=== PATIENT | male | born 1930 | race Caucasian/White ===

== ENCOUNTER 2017-12-16 09:31 | Inpatient (IN) | payer MEDICARE, OTHER ==
[2017-12-16] MEDS: Lactated Ringers 1,000 ML IV SCH ×3 (10:21→21:51)
[2017-12-16 10:46] LABS: CHLORIDE,CL 113 mmol/L (98-107); SODIUM,NA 140 mmol/L (136-145)
[2017-12-16] MEDS ORDERED: cefTRIAXone 2 GM Vial IVPUSH ONE (11:48)
--- NOTE | 2017-12-16 19:17 | HP ---
HISTORY OF PRESENT ILLNESS: 87-year-old admitted with weakness. The patient states he was in his normal state of health. Yesterday, his actually came home from the hospital. Then, this morning, he just was extremely weak in the legs. Maybe a little bit of chills. No fever. Some low back pain, but feels that is more chronic. No abdominal pain. No high output from his ostomy. Some chronic leg swelling, but no foot sores or redness. No cough. No chest pain. No shortness of breath, but presented to the ER with the above symptoms of leg weakness, just not even hardly able to stand. Temperature is mildly elevated at 99.9, but white count was normal. He was found to have a UTI with 20-30 wbc's. He normally does have urinary residual at home. He used to straight cath. He had some problems with infections in the past from that. He does have previous urine culture on file. He grew Enterococcus back in 2016, but grew Enterobacter in his blood at that time, which was felt to be due to a buttock ulcer. He has currently had the ulcer in his low back again, but on exam, there was no sign of infection. The Enterococcus was actually showing small like only 10,000, but it was sensitive to ampicillin. The patient is allergic to penicillin, so did get Rocephin in the ER, which he tolerated. ALLERGIES: The patient's allergy list includes Augmentin caused nausea and vomiting, so likely he may be able to tolerate penicillin. Tramadol caused him to be dizzy. MEDICATIONS: List was reviewed. Did show him to have Flomax 0.8 mg daily, Uloric 40 mg daily, iron supplements 324 b.i.d., Imdur 15 mg every other day, Neurontin 300 mg at bedtime, Lopressor 12.5 mg b.i.d., Aranesp as directed by [facility]. He actually had a shot on 11/05. He has Lasix 20 mg as needed for fluid retention, multivitamin daily, artificial Tears, aspirin 325 daily, Tylenol 650 every 4 hours as needed for pain, ostomy supplies. PAST MEDICAL HISTORY: Includes: 1. Ileostomy status for ulcerative colitis. 2. Atrial fibrillation, chronic. He is seen by Cardiology in the remote past. They recommended only aspirin for him. He has had even previous digoxin toxicity. 3. Neuropathy with prediabetes. 4. Detrusor instability with urinary retention. At one point, BPH and obstruction. 5. Chronic kidney disease stage 4. Baseline around 1.5 to 1.7. He has had several admissions for acute renal failure going up to 5.1, and had previously been around 1.8 to 2.2 after that. His creatinine on 12/04 was actually 1.7. Otherwise, he has chronic anemia due to chronic kidney disease, history of gout, previous skin cancers, previous non-ST elevation OH with ischemic cardiomyopathy, EF 40% in 2016, on medical management. He had some hypotension at that time, but he has been doing well since. 6. Iron deficiency anemia. 7. Previous toe infections. No sign of infection on today's admission. PREVIOUS SURGERIES: It should be noted that he had a cataract surgery, vein surgeries in his legs, growth behind his knee removed, right shoulder replacement, inguinal hernia repair, right side foot surgery, partial 3rd toe amputation, and other foot surgery was in 2016, a left tibial and fibular sesamoidectomy, previous colon surgery with colectomy for ulcerative colitis. He has also had minor amputations on the right hallux. The right hallux is the last one in his foot. SOCIAL HISTORY: He is . He lives at home with his . 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 He had 1 son of alcohol and intracranial hemorrhage. His just got out of the hospital. He has another child as well. FAMILY HISTORY: Includes both parents . Mother had cardiovascular disease. Brother is , had heart disease and alcohol abuse. REVIEW OF SYSTEMS: General: No weight changes reported, just weakness. No fever reported, but chills. HEENT: No sore throat. Cardiac: No chest pain. No palpitations. Respiratory: No cough. No shortness of breath. Abdominal: No new abdominal pain or change in ostomy output. Musculoskeletal: Again, the back pain, otherwise no new joints pain. Otherwise all systems reviewed and found to be negative unless otherwise stated. He denies confusion. PHYSICAL EXAMINATION: VITALS: T 99.9 HR 88, BP 124/65, RR 16, O2 96 on RA Physical Exam Constitutional: He is oriented to person, place, and time. He appears well- developedand well-nourished. No distress. HENT: Head: Normocephalicand atraumatic. Right Ear: External earnormal. Left Ear: External earnormal. Cardiovascular: An irregularly irregular rhythmpresent. Murmurheard. Neck: no swelling, no enlarged lymph nodes Pulmonary/Chest: Effort normaland breath sounds normal. No respiratory distress. He has no wheezes. Musculoskeletal: He exhibits edema. Trace edema noted to both ankles Neurological: He is alertand oriented to person, place, and time. Skin: He is not diaphoretic. No erythema. Did inspect the sacral area there was a small area at risk for skin breakdown but no ulcer present, no drainage, no surrounding redness or warmth. Psychiatric: He has a normal mood and affect. His behavior is normal. Judgment and thought contentnormal. Abdomen: Ostomy in place positive bowel sounds, abdomen nontender Impression: Leg weakness probably related to UTI UTI complicated with a history of BPH and urinary retention Atrial fibrillation paroxysmal rate controlled on ASA CKD stage 3 baseline Cr around 1.7-1.9 Chronic systolic heart failure EF of 40 % without exacerbation Prediabetes Chronic anemia BPH Ulcerative colitis Plan: Admit for IV fluids Bladder scan Continue IV rocephin Repeat labs in AM SCD's for DVT prophylaxis PT to assess for mobility Code level 3 MKA: 12/16/2017 18:03:34 MODL: 12/16/2017 19:09:01 /[id number] WILVER
[2017-12-16] MEDS: Metoprolol Tartrate 25 MG Tab PO SCH (19:46)
[2017-12-16] MEDS: Gabapentin 300 MG Cap PO SCH (19:46)
[2017-12-16] MEDS: Dextran 70/Hypromellose/PF Ophth Soln 0.9 ML UD EYEBOTH PRN (19:46)
[2017-12-16] MEDS: Acetaminophen 325 MG Tab PO PRN (21:50)
--- NOTE | 2017-12-16 23:43 | PCM.SN ---
- Free Text/Narrative Note: S: Called by nursing due to patient complaining of chest pain. Started at 7-8 pm and patient had a hard time initially localizing this. No associated shortness of breath, nausea, diaphoresis, or lightheadedness. Nursing gave tylenol and patient initially improved. Patient then with left sided pain again around 11, which is when I was contacted and came in to evaluate the patient. Pain on the left side/back now but had initially been in the chest. Chest pain now resolved but back pain rated 8/10. Has never had back pain like this before. Had a fall before coming in to the ER but states this was more like his legs went weak and he slid to the floor. He did not feel he injured anything. Pain was worse when he was laying flat in bed and is improved with his head up; raised the head of the bed further and pain has improved to 3/10. O: Vitals reviewed. Laying in bed in acute distress secondary to pain that did improve with repositioning. No tenderness to palpation in the chest wall. Does have left paraspinal low back tenderness to palpation. Heart with irregular rhythm and normal rate; normal S1 and S2; no m/r/g. Lungs CTAB. Abdomen with normoactive bowel sounds. Soft, nontender, nondistended. Skin warm and dry. A/P: #1 Chest pain #2 Back pain - Has already resolved. - Consider ischemia vs. MSK vs. rib injury as primary differentials. Consider pyelonephritis in the setting of admission for UTI but location is not really flank. Symptoms not consistent with aortic pathology given significant improvement with repositioning and stability of vital signs. - Will start with repeating troponin, CBC, and BMP now. - If labs are unremarkable, will treat with tylenol, heating pad, and position of comfort. - Will intervene as indicated based on lab results. - Patient is comfortable with this plan. - Nursing to notify me if pain worsens again overnight. Aurora Loera MD
--- NOTE | 2017-12-17 00:34 | PCM.SN ---
- Free Text/Narrative Note: Labs reviewed. Hgb dropped slightly, likely due to fluids. Troponin up slightly but still within normal limits. Labs otherwise look ok. Called and patient is still doing well with correct positioning. Will add troponin to labs for the am. He has CBC and CMP ordered for am as well. No other changes tonight unless pain returns.
--- NOTE | 2017-12-17 01:50 | EDM.PDOC ---
ED HPI GENERAL MEDICAL PROBLEM - General Chief Complaint: General Stated Complaint: ER Time Seen by Provider: 12/16/17 09:31 Source of Information: Reports: Patient History Limitations: Reports: No Limitations - History of Present Illness INITIAL COMMENTS - FREE TEXT/NARRATIVE: Pt. presents to ER with complaints of weakness. Pt. states that he is not experiencing any fever or chills. He states that he did not strike his head. No nausea/vomiting/diarrhea. He states that he did not have any chest pain or shortness of breath. Pt. states that he was recently discharged from the hospital. He states he needs to be at home to care for her. He states that the weakness caused he lose strength in his legs and subsequently slumping backward at slow speed. He denies any high speed head trauma. Onset: Today - Related Data Allergies Allergy/AdvReac Type Severity Reaction Status Date / Time amoxicillin [From Augmentin] AdvReac Nausea and Verified 12/16/17 12:01 Vomiting clavulanic acid AdvReac Nausea and Verified 12/16/17 12:01 [From Augmentin] Vomiting tramadol AdvReac Dizziness Verified 12/16/17 10:09 Home Meds: Home Meds Acetaminophen [Mapap] 650 mg PO Q4HR PRN 12/07/13 [History] Febuxostat [Uloric] 40 mg PO DAILY 12/07/13 [History] Gabapentin [Neurontin] 300 mg PO BEDTIME 12/07/13 [History] Multivitamin with Minerals [Multiple Vitamin] 1 tab PO DAILY 12/07/13 [History] Tamsulosin [Flomax] 0.8 mg PO DAILY 12/07/13 [History] Aspirin [Ecotrin] 325 mg PO DAILY 01/19/16 [History] Dextran 70/Hypromellose [Artificial Tears] 1 drop EYEBOTH Q4H PRN 02/19/16 [ History] Darbepoetin Jewel in Polysorbat [Aranesp] 0 - 150 mcg SQ Q28D 11/13/16 [History] Ferrous Gluconate 324 mg PO BID 11/13/16 [History] Furosemide [Lasix] 20 mg PO DAILY PRN 11/13/16 [History] Isosorbide Mononitrate [Imdur] 15 mg PO Q2D 11/13/16 [History] Metoprolol Tartrate [Lopressor] 12.5 mg PO BID 11/13/16 [History] Past Medical History HEENT History: Reports: Other (See Below) Other HEENT History: keratoconjunctivitis sicca, vitreous float-both, dry eyes, presbyopia, myopia Cardiovascular History: Reports: Afib, Heart Murmur, Hypertension, CA, Other ( See Below) Other Cardiovascular History: mitral regurgitation, low HDL, bradycardia, Gastrointestinal History: Reports: Diverticulosis, Other (See Below) Other Gastrointestinal History: ulcerative colitis, ileostomy Genitourinary History: Reports: BPH, Renal Disease Musculoskeletal History: Reports: Gout, Other (See Below) Other Musculoskeletal History: osteomylitis, ulcer of foot Neurological History: Reports: Neuropathy, Peripheral Endocrine/Metabolic History: Reports: Other (See Below) Other Endocrine/Metabolic History: diabetes mellitus Hematologic History: Reports: Anemia, Other (See Below) Other Hematologic History: dig toxicity Oncologic (Cancer) History: Reports: Other (See Below) Other Oncologic History: malignant neoplasm of skin of trunk, skin cancer Dermatologic History: Reports: Other (See Below) Other Dermatologic History: actinic keratosis - Past Surgical History HEENT Surgical History: Reports: Cataract Surgery, Other (See Below) GI Surgical History: Reports: Colostomy, Hernia, Inguinal Male Surgical History: Reports: None Musculoskeletal Surgical History: Reports: Shoulder Surgery, Other (See Below) Social & Family History - Family History Family Medical History: Noncontributory - Tobacco Use Smoking Status *Q: Former Smoker Years of Tobacco use: 5 Used Tobacco, but Quit: Yes Month/Year Tobacco Last Used: 2002 Second Hand Smoke Exposure: No - Caffeine Use Caffeine Use: Reports: None - Recreational Drug Use Recreational Drug Use: No - Living Situation & Occupation Living situation: Reports: , with Spouse Occupation: Retired ED ROS GENERAL - Review of Systems Review Of Systems: See Below Constitutional: Reports: Fever, Chills, Malaise HEENT: Denies: Eye Discharge, Nosebleed, Nose Pain, Throat Swelling Respiratory: Denies: No Symptoms Cardiovascular: Reports: No Symptoms Endocrine: Reports: No Symptoms GI/Abdominal: Reports: No Symptoms : Reports: No Symptoms Musculoskeletal: Reports: No Symptoms Skin: Reports: No Symptoms Neurological: Reports: Tremors, Trouble Speaking, Difficulty Walking, Weakness Psychiatric: Reports: No Symptoms Hematologic/Lymphatic: Reports: No Symptoms Immunologic: Reports: No Symptoms ED EXAM, GENERAL - Physical Exam Exam: See Below Exam Limited By: No Limitations General Appearance: Alert, WD/WN, No Apparent Distress Eye Exam: Bilateral Eye: EOMI, Normal Fundi, Normal Inspection, PERRL Ears: Normal External Exam, Normal Canal, Hearing Grossly Normal, Normal TMs Ear Exam: Bilateral Ear: Auricle Normal, Canal Normal, TM normal Nose: Normal Inspection, Normal Mucosa, No Blood Throat/Mouth: Normal Inspection, Normal Lips, Normal Teeth, Normal Gums, Normal Oropharynx, Normal Voice, No Airway Compromise Head: Atraumatic, Normocephalic Neck: Normal Inspection, Supple, Non-Tender, Full Range of Motion Respiratory/Chest: No Respiratory Distress, Lungs Clear, Normal Breath Sounds, No Accessory Muscle Use, Chest Non-Tender Cardiovascular: Normal Peripheral Pulses, Regular Rate, Rhythm, No Edema, No Gallop, No JVD, No Murmur, No Rub GI/Abdominal: Normal Bowel Sounds, Soft, Non-Tender, No Organomegaly, No Distention, No Abnormal Bruit, No Mass (Male) Exam: Deferred Rectal (Males) Exam: Deferred Back Exam: Normal Inspection, Full Range of Motion, NT Extremities: Normal Inspection, Normal Range of Motion, Non-Tender, Normal Capillary Refill, No Pedal Edema Neurological: Alert, Oriented, CN II-XII Intact, Normal Cognition, Normal Gait, Confused Psychiatric: Normal Affect Course - Vital Signs Last Recorded V/S: Last Vital Signs Temp 36.6 C 12/16/17 21:37 Pulse 89 12/16/17 21:37 Resp 18 12/16/17 21:37 BP 151/77 H 12/16/17 21:37 Pulse Ox 99 12/16/17 21:37 - Orders/Labs/Meds Orders: Active Orders 24 hr Category Date Time Status Chest 1V Frontal [CR] Stat Exams 12/16/17 09:56 Taken CULTURE BLOOD [BC] Stat Lab 12/16/17 10:07 Received CULTURE BLOOD [BC] Stat Lab 12/16/17 10:14 Received UA W/MICROSCOPIC [URIN] Stat Lab 12/16/17 11:31 Ordered Lactated Ringers [Ringers, Lactated] 1,000 ml Med 12/16/17 10:00 Active IV ASDIRECTED Blood Culture x2 Reflex Set [OM.PC] Stat Oth 12/16/17 09:49 Ordered Medication Orders Acetaminophen (Tylenol) 650 mg PO Q4HR PRN PRN Reason: Pain Last Admin: 12/16/17 21:50 Dose: 650 mg Allopurinol (Zyloprim) 200 mg PO DAILY [facility] Artificial Tears (Tears Naturale Free) 0 each EYEBOTH Q4H PRN PRN Reason: Dry Eyes Last Admin: 12/16/17 19:46 Dose: 1 each Aspirin (Ecotrin) 325 mg PO DAILY [facility] Ceftriaxone Sodium (Rocephin) 1 gm IVPUSH DAILY [facility] Gabapentin (Neurontin) 300 mg PO BEDTIME [facility] Last Admin: 12/16/17 19:46 Dose: 300 mg Lactated Ringer's (Ringers, Lactated) 1,000 mls @ 100 mls/hr IV ASDIRECTED [facility] Last Admin: 12/16/17 21:51 Dose: 100 mls/hr Infusion: 12/16/17 21:51 Dose: 100 mls/hr Infusion: 12/16/17 16:04 Dose: 100 mls/hr Admin: 12/16/17 16:03 Dose: 250 mls/hr Infusion: 12/16/17 14:21 Dose: 250 mls/hr Admin: 12/16/17 10:21 Dose: 250 mls/hr Isosorbide Mononitrate (Imdur) 15 mg PO Q2D [facility] Metoprolol Tartrate (Lopressor) 12.5 mg PO BID [facility] Last Admin: 12/16/17 19:46 Dose: 12.5 mg Multivitamins/Minerals (Thera M Plus) 1 tab PO DAILY [facility] Non-Formulary Medication (Ferrous Gluconate [Ferrous Gluconate]) 324 mg PO BID [facility] Tamsulosin HCl (Flomax) 0.8 mg PO DAILY [facility] Labs: Laboratory Tests 12/16/17 12/16/17 12/16/17 Range/Units 10:07 10:07 10:07 WBC 8.6 (4.0-10.0) x10^3/uL RBC 3.14 L (4.5-6.0) x10^6/uL Hgb 10.5 L D (14.0-18.0) g/dL Hct 32.5 L (40.0-52.0) % MCV 103.5 H D (78.0-93.0) fL MCH 33.4 H (26.0-32.0) pg MCHC 32.3 (32.0-36.0) g/dL RDW Coeff of Gwen 13.1 (10.0-15.0) % Plt Count 108 L (130-400) x10^3/uL Add Manual Diff Yes Neutrophils % (Manual) 82 H (50-80) % Band Neutrophils % 6 (0-6) % Lymphocytes % (Manual) 6 L (25-50) % Monocytes % (Manual) 5 (2-11) % Eosinophils % (Manual) 1 (0-4) % Toxic Granulation 2+ moderate H Platelet Estimate Decreased L Giant Platelets Rare H Macrocytosis 2+ moderate H Ovalocytes 2+ moderate H Pennington Cells 1+ slight H Acanthocytes (Spur) 1+ slight H PT 10.2 (9.6-11.4) SEC INR 1.0 L (2.0-3.5) Sodium 140 (136-145) mmol/L Potassium 4.4 (3.5-5.1) mmol/L Chloride 113 H (98-107) mmol/L Carbon Dioxide 20 L (21-32) mmol/L Anion Gap 11.4 (10-20) mmol/L BUN 44 H (7-18) mg/dL Creatinine 1.9 H (0.70-1.30) mg/dL Est Cr Clr Drug Dosing TNP Estimated GFR (MDRD) 34 Glucose 95 (74-106) mg/dL Lactic Acid (0.4-2.0) mmol/L Calcium 8.9 (8.5-10.1) mg/dL Corrected Calcium 9.38 (8.5-10.1) mg/dL Phosphorus 4.1 (2.6-4.7) mg/dL Magnesium 1.7 L (1.8-2.4) mg/dL Total Bilirubin 0.5 (0.2-1.0) mg/dL AST 22 (15-37) U/L ALT 28 (16-63) U/L Alkaline Phosphatase 74 (46-116) U/L Troponin I (<=0.056) ng/mL C-Reactive Protein 1.0 H (<=0.9) mg/dL NT-Pro-B Natriuret Pep 4181 H (<=450) pg/mL Total Protein 6.4 (6.4-8.2) g/dL Albumin 3.4 (3.4-5.0) g/dL Globulin 3.0 Albumin/Globulin Ratio 1.13 Urine Color (YELLOW) Urine Appearance (CLEAR) Urine pH (5.0-8.0) Ur Specific Victor Urine Protein (NEGATIVE) mg/dL Urine Glucose (UA) (NEGATIVE) mg/dL Urine Ketones (NEGATIVE) mg/dL Urine Occult Blood (NEGATIVE) Urine Nitrite (NEGATIVE) Urine Bilirubin (NEGATIVE) Urine Urobilinogen (0.2) EU/dL Ur Leukocyte Esterase (NEGATIVE) Urine RBC (NOT SEEN) /HPF Urine WBC (NOT SEEN) /HPF Ur Squamous Epith Cells (NEGATIVE) /HPF Urine Bacteria (NEGATIVE) /HPF Urine Mucus (NEGATIVE) /LPF 12/16/17 12/16/17 12/16/17 Range/Units 10:07 10:07 11:31 WBC (4.0-10.0) x10^3/uL RBC (4.5-6.0) x10^6/uL Hgb (14.0-18.0) g/dL Hct (40.0-52.0) % MCV (78.0-93.0) fL MCH (26.0-32.0) pg MCHC (32.0-36.0) g/dL RDW Coeff of Gwen (10.0-15.0) % Plt Count (130-400) x10^3/uL Add Manual Diff Neutrophils % (Manual) (50-80) % Band Neutrophils % (0-6) % Lymphocytes % (Manual) (25-50) % Monocytes % (Manual) (2-11) % Eosinophils % (Manual) (0-4) % Toxic Granulation Platelet Estimate Giant Platelets Macrocytosis Ovalocytes Pennington Cells Acanthocytes (Spur) PT (9.6-11.4) SEC INR (2.0-3.5) Sodium (136-145) mmol/L Potassium (3.5-5.1) mmol/L Chloride (98-107) mmol/L Carbon Dioxide (21-32) mmol/L Anion Gap (10-20) mmol/L BUN (7-18) mg/dL Creatinine (0.70-1.30) mg/dL Est Cr Clr Drug Dosing Estimated GFR (MDRD) Glucose (74-106) mg/dL Lactic Acid 1.3 (0.4-2.0) mmol/L Calcium (8.5-10.1) mg/dL Corrected Calcium (8.5-10.1) mg/dL Phosphorus (2.6-4.7) mg/dL Magnesium (1.8-2.4) mg/dL Total Bilirubin (0.2-1.0) mg/dL AST (15-37) U/L ALT (16-63) U/L Alkaline Phosphatase (46-116) U/L Troponin I 0.028 (<=0.056) ng/mL C-Reactive Protein (<=0.9) mg/dL NT-Pro-B Natriuret Pep (<=450) pg/mL Total Protein (6.4-8.2) g/dL Albumin (3.4-5.0) g/dL Globulin Albumin/Globulin Ratio Urine Color Yellow (YELLOW) Urine Appearance Slightly cloudy H (CLEAR) Urine pH 5.0 (5.0-8.0) Ur Specific Victor 1.015 Urine Protein 30 H (NEGATIVE) mg/dL Urine Glucose (UA) Negative (NEGATIVE) mg/dL Urine Ketones Negative (NEGATIVE) mg/dL Urine Occult Blood Small H (NEGATIVE) Urine Nitrite Negative (NEGATIVE) Urine Bilirubin Negative (NEGATIVE) Urine Urobilinogen 0.2 (0.2) EU/dL Ur Leukocyte Esterase Moderate H (NEGATIVE) Urine RBC 10-20 H (NOT SEEN) /HPF Urine WBC 20-30 H (NOT SEEN) /HPF Ur Squamous Epith Cells Few H (NEGATIVE) /HPF Urine Bacteria Few H (NEGATIVE) /HPF Urine Mucus Rare H (NEGATIVE) /LPF Meds: Medications Generic Name Dose Route Start Last Admin Trade Name Freq PRN Reason Stop Dose Admin Acetaminophen 650 mg 12/16/17 14:59 12/16/17 21:50 Tylenol PO 650 mg Q4HR PRN Administration Pain Allopurinol 200 mg 12/17/17 08:00 Zyloprim PO DAILY [facility] Artificial Tears 0 each 12/16/17 15:30 12/16/17 19:46 Tears Naturale Free EYEBOTH 1 each Q4H PRN Administration Dry Eyes Aspirin 325 mg 12/17/17 08:00 Ecotrin PO DAILY [facility] Ceftriaxone Sodium 1 gm 12/17/17 08:00 Rocephin IVPUSH DAILY [facility] Gabapentin 300 mg 12/16/17 20:00 12/16/17 19:46 Neurontin PO 300 mg BEDTIME [facility] Administration Lactated Ringer's 1,000 mls @ 100 mls/hr 12/16/17 10:00 12/16/17 21:51 Ringers, Lactated IV 100 mls/hr ASDIRECTED [facility] Administration Isosorbide Mononitrate 15 mg 12/17/17 08:00 Imdur PO Q2D [facility] Metoprolol Tartrate 12.5 mg 12/16/17 20:00 12/16/17 19:46 Lopressor PO 12.5 mg BID [facility] Administration Multivitamins/Minerals 1 tab 12/17/17 08:00 Thera M Plus PO DAILY [facility] Non-Formulary Medication 324 mg 12/16/17 20:00 Ferrous Gluconate [Ferrous Gluconate] PO BID [facility] Tamsulosin HCl 0.8 mg 12/17/17 08:00 Flomax PO DAILY [facility] Discontinued Medications Generic Name Dose Route Start Last Admin Trade Name Freq PRN Reason Stop Dose Admin Ceftriaxone Sodium 2 gm 12/16/17 11:48 12/16/17 11:54 Rocephin IVPUSH 12/16/17 11:49 2 gm STAT ONE Administration Departure - Departure Time of Disposition: 12:30 Disposition: Admitted As Inpatient 64 Clinical Impression: UTI (urinary tract infection) - Discharge Information - My Orders Last 24 Hours: My Active Orders 12/16/17 09:49 Blood Culture x2 Reflex Set [OM.PC] Stat 12/16/17 09:56 Chest 1V Frontal [CR] Stat 12/16/17 10:00 Lactated Ringers [Ringers, Lactated] 1,000 ml IV ASDIRECTED 12/16/17 10:07 CULTURE BLOOD [BC] Stat 12/16/17 10:14 CULTURE BLOOD [BC] Stat 12/16/17 11:31 UA W/MICROSCOPIC [URIN] Stat - Assessment/Plan Last 24 Hours: My Active Orders 12/16/17 09:49 Blood Culture x2 Reflex Set [OM.PC] Stat 12/16/17 09:56 Chest 1V Frontal [CR] Stat 12/16/17 10:00 Lactated Ringers [Ringers, Lactated] 1,000 ml IV ASDIRECTED 12/16/17 10:07 CULTURE BLOOD [BC] Stat 12/16/17 10:14 CULTURE BLOOD [BC] Stat 12/16/17 11:31 UA W/MICROSCOPIC [URIN] Stat
[2017-12-17] MEDS ORDERED: Isosorbide Mononitrate 30 MG Tab.ER PO SCH (08:00)
[2017-12-17] MEDS: cefTRIAXone 1 GM Vial IVPUSH SCH (08:22)
[2017-12-17] MEDS ORDERED: Sodium Chloride 0.9% 10 ML Syringe FLUSH SCH (08:45)
[2017-12-17] MEDS: Aspirin 325 MG Tab.EC PO SCH (08:47)
[2017-12-17] MEDS: Tamsulosin 0.4 MG Cap.ER PO SCH (08:47)
[2017-12-17] MEDS: Metoprolol Tartrate 25 MG Tab PO SCH ×2 (08:49→20:04)
[2017-12-17] MEDS: Allopurinol 100 MG Tab PO SCH (08:51)
[2017-12-17] MEDS: Multivitamins with Iron/Calcium/Folic Acid/Minerals Tab PO SCH (08:51)
--- NOTE | 2017-12-17 11:49 | PN ---
Progress Note for JENNIFER JON Date: 12/17/2017 Room #: VM.217 HISTORY OF PRESENT ILLNESS: An 87-year-old admitted yesterday with a UTI and leg weakness. Blood cultures are so far negative. Urine culture is pending. He is feeling better. He has been up and working with PT, but his sodium did go up to 146. He was on lactated Ringer's. He has not had any chest pain, no cough, no trouble breathing, but did have some flank pain last evening. He felt it was probably more in the muscles. He took some Tylenol and it went away. He had lab work at that time, which looked all right. Troponins are negative now x3. Otherwise, he has been afebrile here. OBJECTIVE: Vital Signs: Temperature is 97.5, pulse 64, blood pressure 150/75, respiratory rate 16, O2 99 on room air. General: He is in no acute distress. Heart: Regularly irregular with murmur. Lungs: Lung sounds are clear to auscultation bilaterally without crackles or wheezes. Abdomen: Has positive bowel sounds. Soft and nontender. Ostomy in place. He did change it during the night. Extremities: Warm and dry, just trace edema. Mental Status: Alert and orientated x3. Postvoid residual this morning was less than 100. LABORATORY DATA: Lab work from today was reviewed, did show him to have white count normal at 4.1, hemoglobin up to 10.2, platelets 95; he was 108 on admission, went down to 89, now back up to 95. Sodium 146, potassium 4.5, chloride 114, bicarb 22, BUN 42, creatinine 1.6, glucose 86, calcium 8.5. ASSESSMENT AND PLAN: 1. Weakness, probably due to urinary tract infection. This is improving. He probably was dehydrated as well. He got some IV fluids. He is on IV Rocephin. We will continue with the same. 2. Urinary tract infection with history of BPH and retention. He is voiding okay. Culture is pending. We will continue IV Rocephin. 3. Atrial fibrillation, paroxysmal, rate controlled on aspirin. We will continue the same. 4. Chronic kidney disease, stage 3. He is improving his creatinine. He is within his baseline. 5. Chronic systolic failure, ejection fraction of 40% without exacerbation. Lasix is on hold. We will watch him closely for any heart failure. He takes it only p.r.n. actually. 6. Prediabetes. 7. Chronic anemia. 8. BPH. 9. Ulcerative colitis. 10.Episode of flank pain, felt to be musculoskeletal. 11. Thrombocytopenia PLAN: At this point, patient will acute care. We will discontinue IV fluids. We will continue IV Rocephin. We will repeat lab work in the a.m. We will order SCDs for DVT prophylaxis, and we will have PT continue to work with him. Anticipate discharge home tomorrow if stable with home health. MKA: 12/17/2017 11:24:38 MODL: 12/17/2017 11:41:13 /[id number] WILVER
[2017-12-17] MEDS ORDERED: Ferrous Sulfate 325 MG Tab PO SCH (12:00)
[2017-12-17] MEDS: Acetaminophen 325 MG Tab PO PRN (20:04)
[2017-12-17] MEDS: Dextran 70/Hypromellose/PF Ophth Soln 0.9 ML UD EYEBOTH PRN (20:05)
[2017-12-17] MEDS: Gabapentin 300 MG Cap PO SCH (20:05)
[2017-12-18] MEDS: Aspirin 325 MG Tab.EC PO SCH (07:32)
[2017-12-18] MEDS: Tamsulosin 0.4 MG Cap.ER PO SCH (07:32)
[2017-12-18] MEDS: Metoprolol Tartrate 25 MG Tab PO SCH (07:33)
[2017-12-18] MEDS: Multivitamins with Iron/Calcium/Folic Acid/Minerals Tab PO SCH (07:36)
[2017-12-18] MEDS: Allopurinol 100 MG Tab PO SCH (07:36)
[2017-12-18] MEDS: cefTRIAXone 1 GM Vial IVPUSH SCH (08:00)
--- NOTE | 2017-12-18 10:28 | DISCH ---
PRIMARY DISCHARGE DIAGNOSES: Leg weakness and chills with concern for urinary tract infection. However, his urine culture was negative. SECONDARY DISCHARGE DIAGNOSES: Includes; 1. History of benign prostatic hyperplasia with retention. Postvoid residuals were excellent. He was not retaining. 2. Atrial fibrillation, paroxysmal, on aspirin. 3. Thrombocytopenia, mild over the last year, but worsening over the last month, stable on discharge. His platelets were 97 on discharge. 4. Chronic kidney disease, stage 3. Creatinine was improving at the lower end of his baseline on discharge at 1.5. 5. Prediabetes. 6. Chronic anemia, on Aranesp. 7. Chronic systolic heart failure with EF of 40%, stable without exacerbation. 8. 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 9. Episode of flank pain. All troponins were negative. No concern for an OR during this stay. REASON FOR ADMISSION: On the date of admission, this 87-year-old who normally lives at home with his , but she had been in the hospital as well. She had recently gotten home. He had some chills. He was just so weak in the legs. He could not stand. He was brought in the ER, found to have a low-grade temp like 99, but a normal white count. Urine was positive for infection and he had previous Enterococcus UTIs in the past with on this admission 20 to 30 wbc's and 10 to 20 rbc's. Otherwise, he did have a previous admission in the past for a sacral ulcer with Enterobacter bacteremia. Blood cultures at this time were negative. The area on his back was examined. It looks like just minor skin breakdown with no surrounding redness or drainage, so no evidence of infection there. He also had a chest x-ray, which did not show any pneumonia. He had no coughing. No shortness of breath. He was feeling much better after getting some IV fluids. However, on his 2nd hospital day, his sodium had went up to 146 and he was stopped from his IV fluids, lactated Ringer's, and his platelets had dropped down to 89. Therefore, he was continued on acute cares. Today, his sodium was still 147, but he was eating and drinking okay 100% of his meals. He had good ostomy output. He denied any increased ostomy output. His platelets had come back up to 97. Hemoglobin was 10.9, which was stable up from 9.6 actually on admission. White count remained normal and creatinine again down to 1.5. Blood sugars were all excellent between 86 and 129 during his stay. DISCHARGE PLANS AND INSTRUCTIONS: He will follow up with Dr. Espinoza in the clinic on 12/26 at 3:20. No antibiotics prescribed on discharge. He did get IV Rocephin during his stay here for a total of 3 doses and he will not be on Home Health as he says his is homebound, so he will be needing to go out and do things to continue helping her. He will have a CBC and BMP at his followup visit with me. PHYSICAL EXAMINATION: On discharge his physical exam; Vital Signs: Blood pressure up to 174/85, previous was 131/75 earlier in the night. He was not having any headaches or vision changes. Temp 97.6, pulse 91, respiratory rate 16, O2 98% on room air. General: He is in no acute distress. Heart: Irregularly irregular. Lungs: Lung sounds are clear to auscultation bilaterally without crackles or wheezes. Abdomen: Had positive bowel sounds. Soft and nontender. He has an ostomy in place. Extremities: Warm and dry. No edema. Mental Status: Alert and orientated x3. MKA: 12/18/2017 10:01:31 MODL: 12/18/2017 10:18:26 /[id number]
[2017-12-18 10:29] VITALS: BP 137/98
== END 2017-12-18 10:55 | disposition home or self-care (01) | DRG 690 ==
LOC: VM.ED 09:31 → VM.MS 11:45
PROVIDERS: ADMIT Internal Medicine; ATTEND Internal Medicine
DX: N39.0 Urinary tract infection, site not specified (principal); N40.0 Benign prostatic hyperplasia without lower urinary tract symptoms; I10 Essential (primary) hypertension; M10.9 Gout, unspecified; E11.42 Type 2 diabetes mellitus with diabetic polyneuropathy; I50.22 Chronic systolic (congestive) heart failure; K51.90 Ulcerative colitis, unspecified, without complications; N18.4 Chronic kidney disease, stage 4 (severe); N40.1 Benign prostatic hyperplasia with lower urinary tract symptoms; I25.2 Old myocardial infarction; Z87.891 Personal history of nicotine dependence; R33.8 Other retention of urine; D50.9 Iron deficiency anemia, unspecified; I48.0 Paroxysmal atrial fibrillation; R73.03 Prediabetes; D69.6 Thrombocytopenia, unspecified; G62.9 Polyneuropathy, unspecified; Z93.2 Ileostomy status; Z87.440 Personal history of urinary (tract) infections; Z88.0 Allergy status to penicillin; Z88.8 Allergy status to other drugs, medicaments and biological substances; Z79.82 Long term (current) use of aspirin; Z79.899 Other long term (current) drug therapy
CPT/HCPCS: 36415; 71045; 80053; 81001; 83605; 83735; 83880; 84100; 84484; 85025; 85610; 86140; 87040 ×2; 87086; 93005; 96361; 99285; J7120; 80048; 82962; 96374; 97116-GP; 97161-GP; 97530-GP; A9270-GY; J0696

== ENCOUNTER 2018-02-04 17:56 | Emergency (ER) | payer MEDICARE, OTHER ==
[2018-02-04 18:42] VITALS: BP 112/48
--- NOTE | 2018-02-04 19:02 | EDM.PDOC ---
ED HPI GENERAL MEDICAL PROBLEM - General Time Seen by Provider: 02/04/18 18:31 Source of Information: Reports: Patient History Limitations: Reports: No Limitations - History of Present Illness INITIAL COMMENTS - FREE TEXT/NARRATIVE: Pt. presents to ER with complaints of bleeding from padron catheter. He has a padron catheter in place attached to a leg bag. He was discharged from [facility] earlier today. He states that he was pulling his pants down to attend to his catheter and back and feels that it may have pulled and caused some trauma to his penis/bladder. He denies any fever or chills. No weakness. Onset: Today Location: Reports: Other (bladder) - Related Data Allergies Allergy/AdvReac Type Severity Reaction Status Date / Time amoxicillin [From Augmentin] AdvReac Nausea and Verified 02/04/18 18:30 Vomiting clavulanic acid AdvReac Nausea and Verified 02/04/18 18:30 [From Augmentin] Vomiting tramadol AdvReac Dizziness Verified 02/04/18 18:30 Home Meds: Home Meds Acetaminophen [Mapap] 650 mg PO Q4HR PRN 12/07/13 [History] Febuxostat [Uloric] 40 mg PO DAILY 12/07/13 [History] Gabapentin [Neurontin] 300 mg PO BEDTIME 12/07/13 [History] Multivitamin with Minerals [Multiple Vitamin] 1 tab PO DAILY 12/07/13 [History] Aspirin [Ecotrin] 325 mg PO DAILY 01/19/16 [History] Dextran 70/Hypromellose [Artificial Tears] 1 drop EYEBOTH Q4H PRN 02/19/16 [ History] Darbepoetin Jewel in Polysorbat [Aranesp] 0 - 150 mcg SQ Q28D 11/13/16 [History] Ferrous Gluconate 324 mg PO DAILY 11/13/16 [History] Furosemide [Lasix] 20 mg PO DAILY PRN 11/13/16 [History] Isosorbide Mononitrate [Imdur] 15 mg PO Q2D 11/13/16 [History] Metoprolol Tartrate [Lopressor] 12.5 mg PO BID 11/13/16 [History] Past Medical History HEENT History: Reports: Other (See Below) Other HEENT History: keratoconjunctivitis sicca, vitreous float-both, dry eyes, presbyopia, myopia Cardiovascular History: Reports: Afib, Heart Murmur, Hypertension, CT, Other ( See Below) Other Cardiovascular History: mitral regurgitation, low HDL, bradycardia, Gastrointestinal History: Reports: Diverticulosis, Other (See Below) Other Gastrointestinal History: ulcerative colitis, ileostomy Genitourinary History: Reports: BPH, Renal Disease Musculoskeletal History: Reports: Gout, Other (See Below) Other Musculoskeletal History: osteomylitis, ulcer of foot Neurological History: Reports: Neuropathy, Peripheral Endocrine/Metabolic History: Reports: Other (See Below) Other Endocrine/Metabolic History: diabetes mellitus Hematologic History: Reports: Anemia, Other (See Below) Other Hematologic History: dig toxicity Oncologic (Cancer) History: Reports: Other (See Below) Other Oncologic History: malignant neoplasm of skin of trunk, skin cancer Dermatologic History: Reports: Other (See Below) Other Dermatologic History: actinic keratosis - Past Surgical History HEENT Surgical History: Reports: Cataract Surgery, Other (See Below) GI Surgical History: Reports: Colostomy, Hernia, Inguinal Male Surgical History: Reports: None Musculoskeletal Surgical History: Reports: Shoulder Surgery, Other (See Below) Social & Family History - Family History Family Medical History: Noncontributory - Caffeine Use Caffeine Use: Reports: None - Living Situation & Occupation Living situation: Reports: , with Spouse Occupation: Retired ED ROS GENERAL - Review of Systems Review Of Systems: See Below Constitutional: Reports: No Symptoms HEENT: Reports: No Symptoms Respiratory: Reports: No Symptoms Cardiovascular: Reports: No Symptoms Endocrine: Reports: No Symptoms GI/Abdominal: Reports: No Symptoms : Reports: Hematuria Musculoskeletal: Reports: No Symptoms Skin: Reports: No Symptoms Neurological: Reports: No Symptoms Psychiatric: Reports: No Symptoms Hematologic/Lymphatic: Reports: No Symptoms Immunologic: Reports: No Symptoms ED EXAM, GENERAL - Physical Exam Exam: See Below Exam Limited By: No Limitations General Appearance: Alert, WD/WN, No Apparent Distress GI/Abdominal: Normal Bowel Sounds, Soft, Non-Tender, No Organomegaly, No Distention, No Abnormal Bruit, No Mass (Male) Exam: No Hernia, Normal Inspection, Other (gross hematuria noted.) Skin Exam: Warm, Dry, Intact, Normal Color, No Rash ED GENERAL MEDICAL PROCEDURES - Additional/Other Procedure(s) Other (Free Text) Procedure(s): Catheter was discharged. Most of the blood cleared. He was passing no clots. Course - Vital Signs Last Recorded V/S: Last Vital Signs Temp 37.6 C 02/04/18 18:31 Pulse 61 02/04/18 18:31 Resp 16 02/04/18 18:31 BP 112/48 L 02/04/18 18:31 Pulse Ox - Orders/Labs/Meds Orders: Active Orders 24 hr Category Date Time Status Bladder Irrigation [RC] ASDIRECTED Care 02/04/18 18:20 Active UA W/MICROSCOPIC [URIN] Stat Lab 02/04/18 18:20 Results Labs: Laboratory Tests 02/04/18 02/04/18 02/04/18 Range/Units 18:20 18:44 18:44 WBC 5.8 (4.0-10.0) x10^3/uL RBC 2.99 L (4.5-6.0) x10^6/uL Hgb 10.1 L (14.0-18.0) g/dL Hct 30.3 L (40.0-52.0) % MCV 101.3 H (78.0-93.0) fL MCH 33.8 H (26.0-32.0) pg MCHC 33.3 (32.0-36.0) g/dL RDW Coeff of Gwen 14.1 (10.0-15.0) % Plt Count 115 L (130-400) x10^3/uL Neut % (Auto) 70.1 (50.0-80.0) % Lymph % (Auto) 11.5 L (25.0-50.0) % [place] % (Auto) 16.0 H (2.0-11.0) % Eos % (Auto) 2.2 (0.0-4.0) % Baso % (Auto) 0.2 (0.2-1.2) % PT 11.0 (9.6-11.4) SEC INR 1.1 L (2.0-3.5) Urine Color Red H (YELLOW) Urine Appearance Turbid H (CLEAR) Urine pH 5.5 (5.0-8.0) Ur Specific [place] 1.015 Urine Protein >=300 H (NEGATIVE) mg/dL Urine Glucose (UA) Negative (NEGATIVE) mg/dL Urine Ketones Negative (NEGATIVE) mg/dL Urine Occult Blood Large H (NEGATIVE) Urine Nitrite Negative (NEGATIVE) Urine Bilirubin Small H (NEGATIVE) Urine Urobilinogen 0.2 (0.2) EU/dL Ur Leukocyte Esterase Large H (NEGATIVE) Meds: Medications Discontinued Medications Generic Name Dose Route Start Last Admin Trade Name Jesse PRN Reason Stop Dose Admin Nitrofurantoin Macrocrystals 1 packet 02/04/18 19:18 Take Home: Nitrofur [place]/Ma 100 Mg, 2 Pack PO 02/04/18 19:19 ONETIME ONE Departure - Departure Time of Disposition: 19:22 Disposition: Home, Self-Care 01 Clinical Impression: UTI, Urinary tract infectious disease, Hematuria - Discharge Information Instructions: Urinary Tract Infection, Adult Referrals: Cindy Espinoza DO [Primary Care Provider] - Forms: ED Department Discharge Additional Instructions: Start Macrobid 100mg twice daily for 5 days. Return to ER if you have fever, chills, flank pain, or lightheadedness. Follow-up in clinic in 7-10 days, sooner if not gradually improving. - My Orders Last 24 Hours: My Active Orders 02/04/18 18:20 Bladder Irrigation [RC] ASDIRECTED UA W/MICROSCOPIC [URIN] Stat - Assessment/Plan Last 24 Hours: My Active Orders 02/04/18 18:20 Bladder Irrigation [RC] ASDIRECTED UA W/MICROSCOPIC [URIN] Stat
[2018-02-04] MEDS: Take Home: Nitrofurantoin Monohydrate/Macrocrystalline 100 MG, 2 Cap Pack PO ONE (20:08)
[2018-02-04] MEDS ORDERED: Take Home: Nitrofurantoin Monohydrate/Macrocrystalline 100 MG, 2 Cap Pack ONE (20:09)
== END 2018-02-04 20:16 | disposition home or self-care (01) ==
LOC: VM.ED 17:56
DX: N39.0 Urinary tract infection, site not specified (principal)
CPT/HCPCS: 36415; 51700; 81001; 85025; 85610; 99283; 99283-GF; A9270-GY

== ENCOUNTER 2018-02-13 07:31 | Emergency (ER) | payer MEDICARE, OTHER ==
--- NOTE | 2018-02-13 07:50 | EDM.PDOC ---
<Gurwinder Sullivan - Last Filed: 02/13/18 08:05> ED HPI GENERAL MEDICAL PROBLEM - General Chief Complaint: Gastrointestinal Problem Stated Complaint: Abdominal Pain Time Seen by Provider: 02/13/18 07:44 Source of Information: Reports: Patient, EMS Notes Reviewed, Family, RN, RN Notes Reviewed History Limitations: Reports: No Limitations - History of Present Illness INITIAL COMMENTS - FREE TEXT/NARRATIVE: Patient is brought to the ED at [facility] via EMS for crampy colicky abdominal pain that started at 4am. He chronically has a Colostomy and padron catheter. He has noticed some blood in his urine, which he states is noting really new. Padron has remained patent. Colostomy has be drained a foul smelling watery stool. Patient states this sometimes happens. His stools are not always formed. He has a history of recent abx use. No recent changes with any other medications. He was in to see his PCP yesterday. Really no changes made. He denies any focal neurological deficits. No chest pain or SOB. He states the abdominal pain is wave like. It is sharp and stabbing at its worse. Patient has not tried any OTC products at home. The EMS crew did give the patient 1 mg of IV Dilaudid. Patient states his pain is in the lower pelvic area. No fevers or chills. Patient states he is trying to stay well hydrated with good PO fluid intake. He denies any other pain. 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 EMS Report, Urinary Catheter in Place - Related Data Allergies Allergy/AdvReac Type Severity Reaction Status Date / Time amoxicillin [From Augmentin] AdvReac Nausea and Verified 02/13/18 08:53 Vomiting clavulanic acid AdvReac Nausea and Verified 02/13/18 08:53 [From Augmentin] Vomiting tramadol AdvReac Dizziness Verified 02/13/18 08:53 Home Meds: Home Meds Acetaminophen [Mapap] 650 mg PO Q4HR PRN 12/07/13 [History] Febuxostat [Uloric] 40 mg PO DAILY 12/07/13 [History] Gabapentin [Neurontin] 300 mg PO BEDTIME 12/07/13 [History] Multivitamin with Minerals [Multiple Vitamin] 1 tab PO DAILY 12/07/13 [History] Aspirin [Ecotrin] 325 mg PO DAILY 01/19/16 [History] Dextran 70/Hypromellose [Artificial Tears] 1 drop EYEBOTH Q4H PRN 02/19/16 [ History] Darbepoetin Jewel in Polysorbat [Aranesp] 0 - 150 mcg SQ Q28D 11/13/16 [History] Ferrous Gluconate 324 mg PO DAILY 11/13/16 [History] Furosemide [Lasix] 20 mg PO DAILY PRN 11/13/16 [History] Isosorbide Mononitrate [Imdur] 15 mg PO Q2D 11/13/16 [History] Metoprolol Tartrate [Lopressor] 12.5 mg PO BID 11/13/16 [History] Fluconazole [Diflucan] 150 mg PO ASDIRECTED 02/13/18 [History] Past Medical History HEENT History: Reports: Other (See Below) Other HEENT History: keratoconjunctivitis sicca, vitreous float-both, dry eyes, presbyopia, myopia Cardiovascular History: Reports: Afib, Heart Murmur, Hypertension, MA, Other ( See Below) Other Cardiovascular History: mitral regurgitation, low HDL, bradycardia, Gastrointestinal History: Reports: Diverticulosis, Other (See Below) Other Gastrointestinal History: ulcerative colitis, ileostomy Genitourinary History: Reports: BPH, Renal Disease Musculoskeletal History: Reports: Gout, Other (See Below) Other Musculoskeletal History: osteomylitis, ulcer of foot Neurological History: Reports: Neuropathy, Peripheral Endocrine/Metabolic History: Reports: Other (See Below) Other Endocrine/Metabolic History: diabetes mellitus Hematologic History: Reports: Anemia, Other (See Below) Other Hematologic History: dig toxicity Oncologic (Cancer) History: Reports: Other (See Below) Other Oncologic History: malignant neoplasm of skin of trunk, skin cancer Dermatologic History: Reports: Other (See Below) Other Dermatologic History: actinic keratosis - Past Surgical History HEENT Surgical History: Reports: Cataract Surgery GI Surgical History: Reports: Colostomy, Hernia, Inguinal Male Surgical History: Reports: None Musculoskeletal Surgical History: Reports: Shoulder Surgery Social & Family History - Family History Family Medical History: Noncontributory - Caffeine Use Caffeine Use: Reports: None - Living Situation & Occupation Living situation: Reports: , with Spouse Occupation: Retired ED ROS GENERAL - Review of Systems Review Of Systems: See Below Constitutional: Denies: Fever, Chills, Weakness Respiratory: Denies: Shortness of Breath, Cough Cardiovascular: Denies: Chest Pain, Palpitations GI/Abdominal: Reports: Abdominal Pain. Denies: Nausea, Vomiting Skin: Reports: No Symptoms Neurological: Reports: No Symptoms ED EXAM, GI/ABD - Physical Exam Exam: See Below Exam Limited By: No Limitations General Appearance: Alert, No Apparent Distress Respiratory/Chest: No Respiratory Distress, Lungs Clear, Normal Breath Sounds Cardiovascular: Normal Peripheral Pulses, Regular Rate, Rhythm GI/Abdominal Exam: Tender, Abnormal Bowel Sounds (Hyperactive x4), Other ( Colostomy intact; water foul smelling stool) (Male) Exam: Other (padron cath intact; draining blood tinger urine) Neurological: Alert, Oriented Skin Exam: Warm, Dry, Intact, Normal Color Course - Vital Signs Last Recorded V/S: Last Vital Signs Temp 37.3 C 02/13/18 07:40 Pulse 96 02/13/18 07:40 Resp 16 02/13/18 07:40 BP 160/72 H 02/13/18 07:40 Pulse Ox 98 02/13/18 07:40 - Orders/Labs/Meds Orders: Active Orders 24 hr Category Date Time Status Bladder Irrigation [RC] ASDIRECTED Care 02/13/18 09:40 Active Bladder Scan [RC] ASDIRECTED Care 02/13/18 09:46 Ordered Abdomen Pelvis w Cont [CT] Stat Exams 02/13/18 07:58 Ordered GI PANEL Stat Lab 02/13/18 07:40 Received UA W/MICROSCOPIC [URIN] Stat Lab 02/13/18 07:50 Ordered Sodium Chloride 0.9% [Saline Flush] Med 02/13/18 07:56 Active 10 ml FLUSH ASDIRECTED PRN Peripheral IV Insertion Adult [OM.PC] Routine Oth 02/13/18 07:56 Ordered Medication Orders Sodium Chloride (Saline Flush) 10 ml FLUSH ASDIRECTED PRN PRN Reason: Keep Vein Open Labs: Laboratory Tests 02/13/18 02/13/18 02/13/18 Range/Units 08:09 08:09 09:45 WBC 4.7 (4.0-10.0) x10^3/uL RBC 2.87 L (4.5-6.0) x10^6/uL Hgb 9.7 L (14.0-18.0) g/dL Hct 28.3 L (40.0-52.0) % MCV 98.6 H (78.0-93.0) fL MCH 33.8 H (26.0-32.0) pg MCHC 34.3 (32.0-36.0) g/dL RDW Coeff of Gwen 12.7 (10.0-15.0) % Plt Count 137 (130-400) x10^3/uL Neut % (Auto) 67.5 (50.0-80.0) % Lymph % (Auto) 12.4 L (25.0-50.0) % [place] % (Auto) 17.8 H (2.0-11.0) % Eos % (Auto) 2.1 (0.0-4.0) % Baso % (Auto) 0.2 (0.2-1.2) % Sodium 133 L D (136-145) mmol/L Potassium 5.1 (3.5-5.1) mmol/L Chloride 103 D (98-107) mmol/L Carbon Dioxide 18 L (21-32) mmol/L Anion Gap 17.1 (10-20) mmol/L BUN 41 H (7-18) mg/dL Creatinine 1.9 H (0.70-1.30) mg/dL Est Cr Clr Drug Dosing TNP Estimated GFR (MDRD) 34 Glucose 84 (74-106) mg/dL Calcium 8.3 L (8.5-10.1) mg/dL Magnesium 1.6 L (1.8-2.4) mg/dL Urine Color Red H (YELLOW) Urine Appearance Cloudy H (CLEAR) Urine pH 5.5 (5.0-8.0) Ur Specific [place] 1.010 Urine Protein 100 H (NEGATIVE) mg/dL Urine Glucose (UA) Negative (NEGATIVE) mg/dL Urine Ketones Negative (NEGATIVE) mg/dL Urine Occult Blood Large H (NEGATIVE) Urine Nitrite Negative (NEGATIVE) Urine Bilirubin Negative (NEGATIVE) Urine Urobilinogen 0.2 (0.2) EU/dL Ur Leukocyte Esterase Moderate H (NEGATIVE) Urine RBC 75-100 H (NOT SEEN) /HPF Urine WBC 5-10 H (NOT SEEN) /HPF Ur Squamous Epith Cells Not seen (NEGATIVE) /HPF Urine Bacteria Moderate H (NEGATIVE) /HPF Urine Mucus Few H (NEGATIVE) /LPF Meds: Medications Generic Name Dose Route Start Last Admin Trade Name Jesse PRN Reason Stop Dose Admin Sodium Chloride 10 ml 02/13/18 07:56 Saline Flush FLUSH ASDIRECTED PRN Keep Vein Open Discontinued Medications Generic Name Dose Route Start Last Admin Trade Name Freashley PRN Reason Stop Dose Admin Hydromorphone HCl 1 mg 02/13/18 07:56 02/13/18 08:03 Dilaudid IVPUSH 02/13/18 07:57 1 mg ONETIME ONE Administration Sodium Chloride 1,000 mls @ 999 mls/hr 02/13/18 07:57 02/13/18 08:03 Normal Saline IV 02/13/18 08:57 999 mls/hr ONETIME ONE Administration Iopamidol 100 ml 02/13/18 08:54 02/13/18 08:57 Isovue-300 (61%) IVPUSH 02/13/18 08:55 100 ml ONETIME ONE Administration Methylprednisolone Sodium Succinate 40 mg 02/13/18 08:22 02/13/18 09:08 Solu-Medrol IVPUSH 02/13/18 08:23 40 mg ONETIME ONE Administration Morphine Sulfate 2 mg 02/13/18 08:57 02/13/18 09:06 Morphine IVPUSH 02/13/18 08:58 2 mg ONETIME ONE Administration Ondansetron HCl 4 mg 02/13/18 07:57 02/13/18 08:06 Zofran IVPUSH 02/13/18 07:58 4 mg ONETIME ONE Administration Departure - Departure Disposition: Home, Self-Care 01 Clinical Impression: Padron catheter problem Qualifiers: Encounter type: initial encounter Qualified Code(s): T83.9XXA - Unspecified complication of genitourinary prosthetic device, implant and graft, initial encounter Abdominal pain Qualifiers: Abdominal location: lower abdomen, unspecified Qualified Code(s): R10.30 - Lower abdominal pain, unspecified - Discharge Information Instructions: Abdominal Pain, Adult, [id number], Indwelling Urinary Catheter Care, Adult, [id number] Forms: ED Department Discharge Additional Instructions: 1. Activity and diet as tolerated 2. Follow-up in the clinic with her scheduled appointment. 3. Extremely her primary care doctor know her CT finding did indicate a 2.4 cm soft tissue nodule in the right upper quadrant suggesting MRI for further characterization. 4. Complete daily padron Catheter cares as normally indicated 5.Keep the catheter secured to the thigh to prevent from moving and causing a misposition 6.increase water intake over the course of the next 3-4 days to help continue to flush out the kidneys - Problem List Review Problem List Initiated/Reviewed/Updated: Yes - My Orders Last 24 Hours: My Active Orders 02/13/18 09:46 Bladder Scan [RC] ASDIRECTED - Assessment/Plan Last 24 Hours: My Active Orders 02/13/18 09:46 Bladder Scan [RC] ASDIRECTED <Celeste Romero - Last Filed: 02/13/18 10:47> ED EXAM, GI/ABD - Physical Exam Neck: Normal Inspection, Supple, Non-Tender Respiratory/Chest: No Respiratory Distress, Lungs Clear, Normal Breath Sounds, No Accessory Muscle Use Cardiovascular: Normal Peripheral Pulses, Regular Rate, Rhythm, No Edema GI/Abdominal Exam: No Distention, Abnormal Bowel Sounds (Male) Exam: Other Back Exam: Normal Inspection Extremities: Normal Inspection, Non-Tender, No Pedal Edema, Normal Capillary Refill Neurological: Alert, Oriented Psychiatric: Normal Affect, Normal Mood Skin Exam: Warm, Dry, Intact, Normal Color Departure - Departure Time of Disposition: 10:45 Condition: Good - Discharge Information *PRESCRIPTION DRUG MONITORING PROGRAM REVIEWED*: Not Applicable *COPY OF PRESCRIPTION DRUG MONITORING REPORT IN PATIENT SUSHILA: Not Applicable - Assessment/Plan Assessment:: 1. Report received from Gurwinder GALLARDO. 2. Bladder scan completed with greater than 400ml with padron cath in place 3. Replacement of padron completed 4. Pdaron draining without complications 5. Pt's pain went from a 10-2. Resting comfortably 6. Pt would like to go home and follow up in the clinic as he has an appointment in the coming week.
[2018-02-13] MEDS ORDERED: HYDROmorphone 1 MG/ML Syringe IVPUSH ONE (07:56)
[2018-02-13] MEDS ORDERED: Sodium Chloride 0.9% 10 ML Syringe FLUSH PRN (07:56)
[2018-02-13] MEDS ORDERED: Sodium Chloride 0.9% 1,000 ML IV ONE (07:57)
[2018-02-13] MEDS ORDERED: Ondansetron 4 MG/2 ML SDV IVPUSH ONE (07:57)
[2018-02-13] MEDS ORDERED: methylPREDNISolone Sodium Succinate 40 MG/1 ML SDV IVPUSH ONE (08:22)
[2018-02-13 08:30] LABS: CHLORIDE,CL 103 mmol/L (98-107); SODIUM,NA 133 mmol/L (136-145)
[2018-02-13 08:31] LABS: ANION GAP 17.1 mmol/L (10-20)
[2018-02-13] MEDS ORDERED: Iopamidol 612 MG/ML 100 ML Bottle IVPUSH ONE (08:54)
[2018-02-13] MEDS ORDERED: Morphine 2 MG/ML Syringe IVPUSH ONE (08:57)
[2018-02-13 08:59] VITALS: BP 160/72
== END 2018-02-13 11:00 | disposition home or self-care (01) ==
LOC: VM.ED 07:31
DX: T83.89XA Other specified complication of genitourinary prosthetic devices, implants and grafts, initial encounter (principal); I48.91 Unspecified atrial fibrillation; I10 Essential (primary) hypertension; I25.2 Old myocardial infarction; Z79.82 Long term (current) use of aspirin; Z79.899 Other long term (current) drug therapy; Z88.1 Allergy status to other antibiotic agents; Z88.5 Allergy status to narcotic agent
CPT/HCPCS: 36415; 51798; 74177; 80048; 81001; 83735; 85025; 87507; 96361; 96374; 96375; 99285; J1170; J2270; J2405; J2920; J7030; Q9967

== ENCOUNTER 2018-02-13 13:14 | Observation (INO) | payer MEDICARE, OTHER ==
[2018-02-13] MEDS ORDERED: Sodium Chloride 0.9% 10 ML Syringe FLUSH PRN (16:04)
[2018-02-13] MEDS ORDERED: Acetaminophen 325 MG Tab PO PRN (16:07)
[2018-02-13] MEDS ORDERED: Dextran 70/Hypromellose/PF Ophth Soln 0.9 ML UD EYEBOTH PRN (20:30)
[2018-02-13] MEDS: Gabapentin 300 MG Cap PO SCH (20:54)
[2018-02-13] MEDS: Metoprolol Tartrate 25 MG Tab PO SCH (20:54)
--- NOTE | 2018-02-13 23:00 | HP ---
CHIEF COMPLAINT: Weakness. HISTORY OF PRESENT ILLNESS: This is an 87-year-old male who recently had an acute stay from 02/02/2018 through 02/04/2018 for acute renal failure with some urinary retention, but mostly he was having some prerenal failure. He had significant improvement with IV fluids. His creatinine was 1.7 on discharge, which is near his baseline. His admitting creatinine was over 3 with high potassium. This all resolved with fluids and some IV Lasix, but he is normally not taking Lasix at home. Because of some Ree infection in his periarea, the fact that he was incontinent, he had BPH with retention up to at least 300, we did put a Laird catheter in, unfortunately he has had quite a bit of problems with that. He had an ER visit that same day for flushing then again on 02/06/2018 then again this morning. He had severe abdominal pain around 4 a.m. In the ER, he had a bladder scan for 400, they replaced his Laird, and when it drained out he felt much better. His lab work looked okay. His creatinine was 1.9. He was not having any fevers. His white count was normal. His hemoglobin was stable around 9.7. His UA did show blood, but really only 5 to 10 wbcs and all of his cultures have been negative; so, he was stable to be discharged home. He had actually even been seen in the clinic yesterday for catheter leaking, but it was felt to be just minimal, so nothing was changed and he was recommended to follow up with Urology. The patient then went home, he was trying to get from his car to his house in the garage and he sort of slipped down, but did not have any injury. His with the police was able to get him back in the car, brought him back to the hospital. It took 2 nurses to get him out of the vehicle and it was just felt that he was too weak to be at home, which is sort of a recurrent problem and had another admission for the same. He was treated with antibiotics for a questionable UTI, but never had it. Basically, the patient is being admitted for some physical therapy. ALLERGIES: Include amoxicillin with Augmentin and tramadol. MEDICATIONS: His medication list is reviewed and listed in [facility]. PAST MEDICAL HISTORY: Includes: 1. Chronic kidney disease, stage 3 to 4 with previous admissions for acute renal failure. 2. History of hypotension with cardiogenic shock and non-ST TX a few years ago, improved. He is not even using Lasix. 3. History of AFib, but not on anticoagulation, he is certainly a fall risk, I would not start it at this point. 4. History of basal cell skin cancer, longstanding neuropathy with prediabetes, small-bowel diverticular disease and recent treatment with Flagyl and Ceftin for small bowel overgrowth prior to his recent admission for renal failure. 5. Ulcerative colitis, status post colectomy and ileostomy. 6. Atrial fibrillation. 7. Chronic systolic heart failure, EF 40% with [id number] mitral regurgitation. 8. Osteomyelitis in the foot. 9. 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 10.Previous hyperkalemia. 11.Ischemic cardiomyopathy, that non ST-elevation TX was in 2016, he did not require any stents. 12.Chronic iron deficiency anemia and [id number] disease. He is on some Procrit through Nephrology. 13.Right shoulder replacement. PAST SURGICAL HISTORY: As above. He has also had a growth removed from his knee, some eye surgeries, hernia repair on the right inguinal area, multiple foot surgeries, and toe amputations. SOCIAL HISTORY: He is . He lives at home with his . 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 They had a son who of alcohol and had intracranial hemorrhage. 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 FAMILY HISTORY: Both parents are , mother had cardiovascular disease, brothers are and had some alcohol and heart disease. REVIEW OF SYSTEMS: General: There is no reported weight changes. No fever. No chills. HEENT: No sore throat. Cardiac: No chest pain. No shortness of breath. Respiratory: No cough. No wheezing. Musculoskeletal: He just feels generally weak. No joint aches or pains. : He has had some leakage around his catheter, some blood at times in the catheter, but it is draining okay. Abdomen: No abdominal pain currently. He did have some loose output through his ostomy and it is watery, but this is not unusual for him. PHYSICAL EXAMINATION: Vital Signs: His temperature today is 98.5, his weight is 73.4 kg, pulse 72, blood pressure 118/62, respiratory rate 18, and O2 98% on room air. General: He is in no acute distress. Heart: Regularly irregular with murmur. Lungs: Sounds are clear to auscultation bilaterally without crackles or wheezes. Abdomen: Nondistended, nontender. Ostomy in place. Positive bowel sounds. Musculoskeletal: He has no edema to his extremities. Mental Status: He is alert and orientated x3. LABORATORY DATA: Lab work from this morning is reviewed showed white count 4.7, hemoglobin 9.7, platelets 137, which is actually improved for him. Sodium 133, potassium 5.1, chloride 103, bicarb 18, BUN 41, creatinine 1.9, and it should be noted he was actually 2.0 when he was here on 02/04/2018. ASSESSMENT AND PLAN: 1. Generalized weakness with multiple medical comorbidities in an elderly gentleman. We will get PT to see him. We will see if we can get him up and moving around. I am very hopeful that he will be able to return home with his tomorrow; if not, could consider self-pay swing bed as he did not have a qualifying acute stay. Otherwise, chronic kidney disease is stable. 2. Benign prostatic hypertrophy with urinary retention. We talked about removing the Laird because he is having so many problems, but at this point, he prefers to just keep it in, so I will have nursing cares for that. He does have a Urology appointment coming up soon. 3. Atrial fibrillation, chronic. I will put him on telemetry to make sure he does not have any tachycardia or campbell. 4. Chronic anemia. He is due for his Procrit shot or Aranesp later this month at his followup visit with myself. Lab work is also planned. PLAN: The patient will be on observation status and likely can go home tomorrow. Dr. Hoffmann to follow. He is strongly encouraged to do Home Health, but he feels that he could do outpatient public health; so, we will have the social science teacher continue to work with this. We will change the catheter if needed, but continue just regular catheter cares for now. I will repeat lab work in the morning as he did have mild hyponatremia. No DVT prophylaxis due to bleeding concerns and he is likely to go home within a 24 hour period. MKA: 02/13/2018 16:35:06 MODL: 02/13/2018 22:53:06 /[id number]
[2018-02-14 07:58] LABS: ANION GAP 15.5 mmol/L (10-20)
[2018-02-14] MEDS ORDERED: Ferrous Gluconate [Ferrous Gluconate] 324mg PO SCH (08:00)
[2018-02-14] MEDS: Multivitamins with Iron/Calcium/Folic Acid/Minerals Tab PO SCH (09:29)
[2018-02-14] MEDS: Metoprolol Tartrate 25 MG Tab PO SCH ×2 (09:29→20:21)
[2018-02-14] MEDS: Aspirin 325 MG Tab.EC PO SCH (09:29)
[2018-02-14] MEDS ORDERED: Sodium Polystyrene Sulfonate 15 GM/60 ML Susp 60 ML Bot PO ONE (09:41)
[2018-02-14] MEDS ORDERED: Sodium Bicarbonate 75 MEQ in Sodium Chloride 0.45% 1,000 ML IV ONE (10:00)
--- NOTE | 2018-02-14 10:01 | PCM.PN ---
- General Info Date of Service: 02/14/18 Admission Dx/Problem (Free Text): weakness, renal failure Subjective Update: Pt has had no further pain from catheter, feels well but admits he has not been drinking much fluid - Patient Data Vitals - Most Recent: Last Vital Signs Temp 97.9 F 02/14/18 06:00 Pulse 65 02/14/18 06:00 Resp 16 02/14/18 06:00 BP 111/54 L 02/14/18 06:00 Pulse Ox 99 02/14/18 06:00 Weight - Most Recent: 162 lb I&O - Last 24 Hours: Intake & Output 02/13/18 02/14/18 02/14/18 22:59 06:59 14:59 Intake Total 1780 100 360 Output Total 700 950 Balance 1080 -850 360 Lab Results Last 24 Hours: Laboratory Results - last 24 hr 02/14/18 02/14/18 Range/Units 07:24 07:24 WBC 8.0 (4.0-10.0) x10^3/uL RBC 2.65 L (4.5-6.0) x10^6/uL Hgb 9.0 L (14.0-18.0) g/dL Hct 26.5 L (40.0-52.0) % MCV 100.0 H (78.0-93.0) fL MCH 34.0 H (26.0-32.0) pg MCHC 34.0 (32.0-36.0) g/dL RDW Coeff of Gwen 13.2 (10.0-15.0) % Plt Count 124 L (130-400) x10^3/uL Neut % (Auto) 90.8 H (50.0-80.0) % Lymph % (Auto) 4.4 L (25.0-50.0) % [place] % (Auto) 4.8 (2.0-11.0) % Eos % (Auto) 0.0 (0.0-4.0) % Baso % (Auto) 0.0 L (0.2-1.2) % Sodium 132 L (136-145) mmol/L Potassium 5.5 H (3.5-5.1) mmol/L Chloride 106 (98-107) mmol/L Carbon Dioxide 16 L (21-32) mmol/L Anion Gap 15.5 (10-20) mmol/L BUN 47 H (7-18) mg/dL Creatinine 2.1 H (0.70-1.30) mg/dL Est Cr Clr Drug Dosing 19.97 mL/min Estimated GFR (MDRD) 30 Glucose 165 H (74-106) mg/dL Calcium 7.9 L (8.5-10.1) mg/dL David Results Last 24 Hours: Microbiology 02/13/18 13:40 MRSA Surveillance Culture - Final Nares, Unspecified NO MRSA ISOLATED Med Orders - Current: Current Medications Acetaminophen (Tylenol) 650 mg PO Q4HR PRN PRN Reason: Pain Artificial Tears (Tears Naturale Free) 0 each EYEBOTH Q4H PRN PRN Reason: DRY EYES Aspirin (Ecotrin) 325 mg PO DAILY [facility] Last Admin: 02/14/18 09:29 Dose: 325 mg Gabapentin (Neurontin) 300 mg PO BEDTIME [facility] Last Admin: 02/13/18 20:54 Dose: 300 mg Sodium Bicarbonate 75 meq/ (Sodium Chloride) 1,075 mls @ 50 mls/hr IV ASDIRECTED ONE Stop: 02/15/18 07:29 Metoprolol Tartrate (Lopressor) 12.5 mg PO BID [facility] Last Admin: 02/14/18 09:29 Dose: 12.5 mg Multivitamins/Minerals (Thera M Plus) 1 tab PO DAILY [facility] Last Admin: 02/14/18 09:29 Dose: 1 tab Febuxostat [Uloric] (40mg) 40 mg PO DAILY [facility] Ferrous Gluconate [ Ferrous Gluconate] 324mg 324 mg PO DAILY [facility] Sodium Chloride (Saline Flush) 10 ml FLUSH ASDIRECTED PRN PRN Reason: Keep Vein Open Last Admin: 02/13/18 20:59 Dose: 10 ml Discontinued Medications Sodium Polystyrene Sulfonate (Kayexalate) 15 gm PO ONETIME ONE Stop: 02/14/18 09:42 - Exam General: Alert Lungs: Clear to Auscultation Cardiovascular: Regular Rate Extremities: No Pedal Edema Psy/Mental Status: Alert Physical Findings Comments:: Pt unable to get outof bed w/o 2 assisting; then was unsteady on standing - Problem List & Annotations (1) Abdominal pain SNOMED Code(s): 43266709 Code(s): R10.9 - UNSPECIFIED ABDOMINAL PAIN Status: Acute Current Visit: No Annotation/Comment:: resolved (2) Laird catheter problem SNOMED Code(s): 469374384 Code(s): T83.9XXA - UNSP COMPLICATION OF GENITOURINARY PROSTH DEV/GRFT, INIT Status: Acute Current Visit: No Annotation/Comment:: resolved (3) Hyperkalemia SNOMED Code(s): 56217215 Code(s): E87.5 - HYPERKALEMIA Status: Acute Current Visit: No Annotation/Comment:: may be worsened by acidosis but will give 1 dose kayexalate today Cr is not back to baseline,will give 1 liter of D51/2 NS with bicarb, push oral fluid (4) CKD (chronic kidney disease), stage IV SNOMED Code(s): 624676703 Code(s): N18.4 - CHRONIC KIDNEY DISEASE, STAGE 4 (SEVERE) Status: Chronic Current Visit: No (5) Weakness SNOMED Code(s): 07404083 Code(s): R53.1 - WEAKNESS Status: Acute Current Visit: Yes - Problem List Review Problem List Initiated/Reviewed/Updated: Yes - My Orders Last 24 Hours: My Active Orders 02/14/18 09:32 Communication Order [RC] ROUTINE - Plan Plan:: weakness: pt not able to trasnfer independently today, will try to correct electrolytes, trial walkign and trasnferring with nurses today
[2018-02-14] MEDS: Gabapentin 300 MG Cap PO SCH (20:22)
[2018-02-15 07:44] LABS: ANION GAP 14.9 mmol/L (10-20)
[2018-02-15] MEDS: Metoprolol Tartrate 25 MG Tab PO SCH (07:55)
[2018-02-15] MEDS: Multivitamins with Iron/Calcium/Folic Acid/Minerals Tab PO SCH (07:56)
[2018-02-15] MEDS: Aspirin 325 MG Tab.EC PO SCH (07:56)
--- NOTE | 2018-02-15 10:19 | PCM.PN ---
- General Info Date of Service: 02/15/18 Subjective Update: Pt feels stronger today but has problems focussing, he is anxious about being in hospital biut also being at home He had a 30 beat run of wide complex tachycardiaT last night which was asx. Pt declines further evlauaiton or rx although . He was informed this could be a life threatening arrhythmia Pt had a lot of gas from kayexalate - Patient Data Vitals - Most Recent: Last Vital Signs Temp 98.2 F 02/15/18 04:57 Pulse 78 02/15/18 04:57 Resp 19 02/15/18 04:57 BP 117/71 02/15/18 07:55 Pulse Ox 100 02/15/18 04:57 Weight - Most Recent: 162 lb I&O - Last 24 Hours: Intake & Output 02/14/18 02/15/18 02/15/18 22:59 06:59 14:59 Intake Total 360 1554 483 Output Total 800 1550 100 Balance -440 4 383 Lab Results Last 24 Hours: Laboratory Results - last 24 hr 02/15/18 Range/Units 07:18 Sodium 129 L* (136-145) mmol/L Potassium 4.9 (3.5-5.1) mmol/L Chloride 100 (98-107) mmol/L Carbon Dioxide 19 L (21-32) mmol/L Anion Gap 14.9 (10-20) mmol/L BUN 43 H (7-18) mg/dL Creatinine 1.6 H (0.70-1.30) mg/dL Est Cr Clr Drug Dosing 26.21 mL/min Estimated GFR (MDRD) 41 Glucose 87 (74-106) mg/dL Calcium 7.3 L (8.5-10.1) mg/dL David Results Last 24 Hours: Microbiology 02/13/18 13:40 MRSA Surveillance Culture - Final Nares, Unspecified NO MRSA ISOLATED Med Orders - Current: Current Medications Acetaminophen (Tylenol) 650 mg PO Q4HR PRN PRN Reason: Pain Artificial Tears (Tears Naturale Free) 0 each EYEBOTH Q4H PRN PRN Reason: DRY EYES Aspirin (Ecotrin) 325 mg PO DAILY [facility] Last Admin: 02/15/18 07:56 Dose: 325 mg Gabapentin (Neurontin) 300 mg PO BEDTIME MAXI Last Admin: 02/14/18 20:22 Dose: 300 mg Dextrose/Sodium Chloride (Dextrose 5%-Normal Saline) 250 mls @ 75 mls/hr IV ASDIRECTED [facility] Metoprolol Tartrate (Lopressor) 12.5 mg PO BID [facility] Last Admin: 02/15/18 07:55 Dose: 12.5 mg Multivitamins/Minerals (Thera M Plus) 1 tab PO DAILY [facility] Last Admin: 02/15/18 07:56 Dose: 1 tab Febuxostat [Uloric] (40mg) 40 mg PO DAILY [facility] Ferrous Gluconate [ Ferrous Gluconate] 324mg 324 mg PO DAILY [facility] Sodium Chloride (Saline Flush) 10 ml FLUSH ASDIRECTED PRN PRN Reason: Keep Vein Open Last Admin: 02/13/18 20:59 Dose: 10 ml Discontinued Medications Sodium Bicarbonate 75 meq/ (Sodium Chloride) 1,075 mls @ 50 mls/hr IV ASDIRECTED ONE Stop: 02/15/18 07:29 Last Admin: 02/14/18 11:08 Dose: 50 mls/hr Sodium Polystyrene Sulfonate (Kayexalate) 15 gm PO ONETIME ONE Stop: 02/14/18 09:42 Last Admin: 02/14/18 10:31 Dose: 15 gm - Exam General: Alert, Other (Pt needed 2 assist to get out of bed but hten was able to walk in walker with only standy assist) Lungs: Clear to Auscultation Cardiovascular: Regular Rate, Regular Rhythm - Problem List & Annotations (1) Abdominal pain SNOMED Code(s): 89843148 Code(s): R10.9 - UNSPECIFIED ABDOMINAL PAIN Status: Acute Current Visit: No Annotation/Comment:: resolved (2) Laird catheter problem SNOMED Code(s): 133329054 Code(s): T83.9XXA - UNSP COMPLICATION OF GENITOURINARY PROSTH DEV/GRFT, INIT Status: Acute Current Visit: No Annotation/Comment:: resolved (3) Hyperkalemia SNOMED Code(s): 87116804 Code(s): E87.5 - HYPERKALEMIA Status: Acute Current Visit: No Annotation/Comment:: Resolved (4) CKD (chronic kidney disease), stage IV SNOMED Code(s): 225723043 Code(s): N18.4 - CHRONIC KIDNEY DISEASE, STAGE 4 (SEVERE) Status: Chronic Current Visit: No Annotation/Comment:: back to baseline (5) Weakness SNOMED Code(s): 25925897 Code(s): R53.1 - WEAKNESS Status: Acute Current Visit: Yes Annotation/ Comment:: pt able to walk in room with walker, standy assist -improved (6) Arrhythmia SNOMED Code(s): 036466023 Code(s): I49.9 - CARDIAC ARRHYTHMIA, UNSPECIFIED Status: Acute Current Visit: Yes Qualifiers: Arrhythmia type: unspecified cardiac arrhythmia Qualified Code(s): I49.9 - Cardiac arrhythmia, unspecified Annotation/Comment:: Wide complex tachcardia which self terminated after about 30 beats, asx. Pt decline further rx will d/c monitor (7) Hyponatremia SNOMED Code(s): 99657452 Code(s): E87.1 - HYPO-OSMOLALITY AND HYPONATREMIA Status: Acute Current Visit: Yes Annotation/Comment:: Pthad a lot of GI output related to kayaxalate yesterday whoich likely caused low sodium. in spite of pt receving I liter isotonic NaCl-NaBicarb IV yesterday. Will give small bolus of D$NS this AM, repeat sodium this afternoon noon to see if it has stabilized.Fluid restrict as well. - Problem List Review Problem List Initiated/Reviewed/Updated: Yes - My Orders Last 24 Hours: My Active Orders 02/14/18 09:32 Communication Order [RC] 02/15/18 10:11 Communication Order [RC] ROUTINE 02/15/18 10:12 Communication Order [RC] ROUTINE 02/15/18 10:15 Dextrose 5%-0.9% NaCl [Dextrose 5%-Normal Saline] 250 ml IV ASDIRECTED 02/15/18 12:00 SODIUM,NA [CHEM] Routine 02/15/18 Breakfast 2 Gram Sodium Diet [DIET] - Plan Plan:: weakness: pt not able to trasnfer independently today, will try to correct electrolytes, trial walkign and trasnferring with nurses today
[2018-02-15] MEDS ORDERED: Sodium Bicarbonate 650 MG Tab PO SCH (13:45)
--- NOTE | 2018-02-15 14:02 | PCM.DCSUM1 ---
Discharge Summary - Hospital Course Diagnosis: Stroke: No - Discharge Data Discharge Disposition: Home, W Home Health Agency 06 Condition: Good - Discharge Diagnosis/Problem(s) (1) Abdominal pain SNOMED Code(s): 47962295 ICD Code: R10.9 - UNSPECIFIED ABDOMINAL PAIN Status: Acute Current Visit : No Problem Details: resolved (2) Laird catheter problem SNOMED Code(s): 645579186 ICD Code: T83.9XXA - UNSP COMPLICATION OF GENITOURINARY PROSTH DEV/GRFT, INIT Status: Acute Current Visit: No Problem Details: resolved (3) Hyperkalemia SNOMED Code(s): 61682327 ICD Code: E87.5 - HYPERKALEMIA Status: Acute Current Visit: No Problem Details: Resolved (4) CKD (chronic kidney disease), stage IV SNOMED Code(s): 359025077 ICD Code: N18.4 - CHRONIC KIDNEY DISEASE, STAGE 4 (SEVERE) Status: Chronic Current Visit: No Problem Details: back to baseline (5) Weakness SNOMED Code(s): 90927591 ICD Code: R53.1 - WEAKNESS Status: Acute Current Visit: Yes Problem Details: pt able to walk in room with walker, standy assist -improved (6) Arrhythmia SNOMED Code(s): 186148255 ICD Code: I49.9 - CARDIAC ARRHYTHMIA, UNSPECIFIED Status: Acute Current Visit: Yes Problem Details: Wide complex tachcardia which self terminated after about 30 beats, asx. Pt decline further rx will d/c monitor Qualifiers: Arrhythmia type: unspecified cardiac arrhythmia Qualified Code(s): I49.9 - Cardiac arrhythmia, unspecified (7) Hyponatremia SNOMED Code(s): 12054071 ICD Code: E87.1 - HYPO-OSMOLALITY AND HYPONATREMIA Status: Acute Current Visit: Yes Problem Details: Pthad a lot of GI output related to kayaxalate yesterday whoich likely caused low sodium. in spite of pt receving I liter isotonic NaCl-NaBicarb IV yesterday. Will give small bolus of D5NS this AM, repeat sodium this afternoon noon to see if it has stabilized.Fluid restrict as well. 12 PM Soidum stable at 129/ Pt asx, pt wishes discharge to home, will discharge with po Nabicarb - Patient Summary/Data Consults: Consultations 02/13/18 14:00 PT Evaluation and Treatment [CONS] Routine 02/13/18 16:04 Consult to Push Connector Assembler [CONS] Routine - Patient Instructions Fluid Restriction: 1500 mL Driving: Do Not Drive - Discharge Plan *PRESCRIPTION DRUG MONITORING PROGRAM REVIEWED*: Not Applicable Prescriptions/Med Rec: Sodium Bicarbonate 650 mg PO DAILY #7 tablet Home Medications: Home Meds Gabapentin [Neurontin] 300 mg PO BEDTIME 12/07/13 [History] Multivitamin with Minerals [Multiple Vitamin] 1 tab PO DAILY 12/07/13 [History] Darbepoetin Jewel in Polysorbat [Aranesp] 0 - 150 mcg SQ Q28D 11/13/16 [History] Furosemide [Lasix] 20 mg PO DAILY PRN 11/13/16 [History] Isosorbide Mononitrate [Imdur] 15 mg PO Q2D 11/13/16 [History] Acetaminophen [Tylenol] 650 mg PO Q4HR PRN tablet 02/15/18 [Rx] Aspirin [Ecotrin] 325 mg PO DAILY tab.ec 02/15/18 [Rx] Dextran 70/Hypromellose/PF [Tears Naturale Free] 0 each EYEBOTH Q4H PRN droperette 02/15/18 [Rx] Febuxostat [Uloric] 40 mg PO DAILY 02/15/18 [Rx] Ferrous Gluconate [Ferrous Gluconate] 324 mg PO DAILY 02/15/18 [Rx] Metoprolol Tartrate [Lopressor] 12.5 mg PO BID tablet 02/15/18 [Rx] Sodium Bicarbonate 650 mg PO DAILY #7 tablet 02/15/18 [Rx] Referrals: Cindy Espinoza DO [Primary Care Provider] - - Discharge Summary/Plan Comment Discharge Summary/Plan Comment: Pt was admitted with abdominal pain and weakness for observation. Hi ruben resolved as soon as his catheter was replaced. The next morning, pt continued to be weak, unable to get out of bed on his own. His Cr was elevated over baseline, K was 5.5 and Bicarb was decreased at 16. The Pt was given Kayexalyte orally and 1 liter of isotonic Sodium chloride and bicarbonate. On the monitor a 30 beat run of complex tachycardia was seen while pt was asleep, he was asx. On the Day of discharge, pt's cr was back to baseline, K was down to 4.9 and Na was down to 129 from 132. Pt was asx from low sodium which was thought to be related to additional GI output from Kayexalate. Pt was given and extra 250 cc of NS and repeat sodium in the afternoon was stable. The Patient was able to get out of bed w/o assistance and walk in the roberts. Pt was apprised of his possible vtach and that this could be a lift threatenting problem. Pt declined further evaluaton and/or treatment for this. He likewise declined further hopsitalization for his hypothermia.Pt is discharged to home and he is willing to accept Home Health Services. Discharge meds: as per previous to admssion with additiona of 650 naBicarb daily RTC in 48 hous for BMP and f/up with Dr Alexis SCHAFFERvity as tolerated with walker, pt is homebound Diet Healthy heart - Patient Data Vitals - Most Recent: Last Vital Signs Temp 98.8 F 02/15/18 10:00 Pulse 80 02/15/18 10:00 Resp 16 02/15/18 10:00 BP 126/67 02/15/18 10:00 Pulse Ox 100 02/15/18 10:00 Weight - Most Recent: 162 lb I&O - Last 24 hours: Intake & Output 02/14/18 02/15/18 02/15/18 22:59 06:59 14:59 Intake Total 360 1554 603 Output Total 800 1550 100 Balance -440 4 503 Lab Results - Last 24 hrs: Laboratory Results - last 24 hr 02/15/18 02/15/18 Range/Units 07:18 12:07 Sodium 129 L* 129 L* (136-145) mmol/L Potassium 4.9 (3.5-5.1) mmol/L Chloride 100 (98-107) mmol/L Carbon Dioxide 19 L (21-32) mmol/L Anion Gap 14.9 (10-20) mmol/L BUN 43 H (7-18) mg/dL Creatinine 1.6 H (0.70-1.30) mg/dL Est Cr Clr Drug Dosing 26.21 mL/min Estimated GFR (MDRD) 41 Glucose 87 (74-106) mg/dL Calcium 7.3 L (8.5-10.1) mg/dL JYOTI Results - Last 24 hrs: Microbiology 02/13/18 13:40 MRSA Surveillance Culture - Final Nares, Unspecified NO MRSA ISOLATED Med Orders - Current: Current Medications Acetaminophen (Tylenol) 650 mg PO Q4HR PRN PRN Reason: Pain Artificial Tears (Tears Naturale Free) 0 each EYEBOTH Q4H PRN PRN Reason: DRY EYES Aspirin (Ecotrin) 325 mg PO DAILY [facility] Last Admin: 02/15/18 07:56 Dose: 325 mg Gabapentin (Neurontin) 300 mg PO BEDTIME [facility] Last Admin: 02/14/18 20:22 Dose: 300 mg Dextrose/Sodium Chloride (Dextrose 5%-Normal Saline) 250 mls @ 75 mls/hr IV ASDIRECTED [facility] Last Admin: 02/15/18 10:33 Dose: 75 mls/hr Metoprolol Tartrate (Lopressor) 12.5 mg PO BID [facility] Last Admin: 02/15/18 07:55 Dose: 12.5 mg Multivitamins/Minerals (Thera M Plus) 1 tab PO DAILY [facility] Last Admin: 02/15/18 07:56 Dose: 1 tab Febuxostat [Uloric] (40mg) 40 mg PO DAILY [facility] Ferrous Gluconate [ Ferrous Gluconate] 324mg 324 mg PO DAILY [facility] Sodium Bicarbonate (Sodium Bicarbonate) 650 mg PO DAILY [facility] Sodium Chloride (Saline Flush) 10 ml FLUSH ASDIRECTED PRN PRN Reason: Keep Vein Open Last Admin: 02/13/18 20:59 Dose: 10 ml Discontinued Medications Sodium Bicarbonate 75 meq/ (Sodium Chloride) 1,075 mls @ 50 mls/hr IV ASDIRECTED ONE Stop: 02/15/18 07:29 Last Admin: 02/14/18 11:08 Dose: 50 mls/hr Sodium Polystyrene Sulfonate (Kayexalate) 15 gm PO ONETIME ONE Stop: 02/14/18 09:42 Last Admin: 02/14/18 10:31 Dose: 15 gm
[2018-02-15 14:51] VITALS: BP 127/76
== END 2018-02-15 14:55 | disposition home health service (06) ==
LOC: VM.MS 13:16
PROVIDERS: ADMIT Internal Medicine; ATTEND Internal Medicine
DX: R10.9 Unspecified abdominal pain (principal); R53.1 Weakness; T83.9XXA Unspecified complication of genitourinary prosthetic device, implant and graft, initial encounter; E87.5 Hyperkalemia; I49.9 Cardiac arrhythmia, unspecified; E87.1 Hypo-osmolality and hyponatremia; N40.1 Benign prostatic hyperplasia with lower urinary tract symptoms; R33.8 Other retention of urine; I48.2 Chronic atrial fibrillation; D64.9 Anemia, unspecified; N18.4 Chronic kidney disease, stage 4 (severe); Z79.82 Long term (current) use of aspirin; Z79.899 Other long term (current) drug therapy; Z88.1 Allergy status to other antibiotic agents; Z88.8 Allergy status to other drugs, medicaments and biological substances
CPT/HCPCS: 36415; 80048; 84295; 85025; 96361; 96365; 96366; 97161; A9270; G0378; G0379; J7030; J7042; J7050; 99217; 99225

== ENCOUNTER 2018-03-14 12:01 | Emergency (ER) | payer MEDICARE, OTHER ==
[2018-03-14 12:15] VITALS: BP 119/54
[2018-03-14] MEDS ORDERED: cefTRIAXone 1 GM Vial IVPUSH ONE (12:28)
--- NOTE | 2018-03-14 12:35 | EDM.PDOC ---
ED HPI GENERAL MEDICAL PROBLEM - General Chief Complaint: Genitourinary Problem Stated Complaint: urine burning Time Seen by Provider: 03/14/18 12:15 Source of Information: Reports: Patient History Limitations: Reports: No Limitations - History of Present Illness INITIAL COMMENTS - FREE TEXT/NARRATIVE: Patient comes into the emergency department with complaint of burning urination and cramping. Patient does have a Padron catheter in place for urinary retention. He states he started noticing the discomfort last evening with small clots forming. He states that when he needs to urinate he notices severe cramping in his lower abdomen occurs. Shortly resolves. He denies any fever nausea or vomiting. He states that the urine has become more dark and cloudy and he became concerned and wanted to present to emergency department for further evaluation and management if necessary. Patient denies any shortness of breath, chest, recent illnesses or recent antibiotic use. Onset: Sudden Quality: Reports: Ache, Dull, Pressure Severity: Mild Improves with: Reports: None Worsens with: Reports: None Associated Symptoms: Reports: No Other Symptoms - Related Data Allergies Allergy/AdvReac Type Severity Reaction Status Date / Time amoxicillin [From Augmentin] AdvReac Nausea and Verified 03/14/18 12:12 Vomiting clavulanic acid AdvReac Nausea and Verified 03/14/18 12:12 [From Augmentin] Vomiting tramadol AdvReac Dizziness Verified 03/14/18 12:12 Home Meds: Home Meds Gabapentin [Neurontin] 300 mg PO BEDTIME 12/07/13 [History] Multivitamin with Minerals [Multiple Vitamin] 1 tab PO DAILY 12/07/13 [History] Darbepoetin Jewel in Polysorbat [Aranesp] 0 - 150 mcg SQ Q28D 11/13/16 [History] Furosemide [Lasix] 20 mg PO DAILY PRN 11/13/16 [History] Isosorbide Mononitrate [Imdur] 15 mg PO Q2D 11/13/16 [History] Acetaminophen [Tylenol] 650 mg PO Q4HR PRN tablet 02/15/18 [Rx] Aspirin [Ecotrin] 325 mg PO DAILY tab.ec 02/15/18 [Rx] Dextran 70/Hypromellose/PF [Tears Naturale Free] 0 each EYEBOTH Q4H PRN droperette 02/15/18 [Rx] Febuxostat [Uloric] 40 mg PO DAILY 02/15/18 [Rx] Ferrous Gluconate [Ferrous Gluconate] 324 mg PO DAILY 02/15/18 [Rx] Metoprolol Tartrate [Lopressor] 12.5 mg PO BID tablet 02/15/18 [Rx] Sodium Bicarbonate 650 mg PO DAILY #7 tablet 02/15/18 [Rx] Ciprofloxacin HCl [Cipro] 500 mg PO BID #6 tablet 03/14/18 [Rx] Past Medical History HEENT History: Reports: Other (See Below) Other HEENT History: keratoconjunctivitis sicca, vitreous float-both, dry eyes, presbyopia, myopia Cardiovascular History: Reports: Afib, Heart Murmur, Hypertension, [place], Other ( See Below) Other Cardiovascular History: mitral regurgitation, low HDL, bradycardia, Gastrointestinal History: Reports: Diverticulosis, Other (See Below) Other Gastrointestinal History: ulcerative colitis, ileostomy Genitourinary History: Reports: BPH, Renal Disease Musculoskeletal History: Reports: Gout, Other (See Below) Other Musculoskeletal History: osteomylitis, ulcer of foot Neurological History: Reports: Neuropathy, Peripheral Endocrine/Metabolic History: Reports: Other (See Below) Other Endocrine/Metabolic History: diabetes mellitus Hematologic History: Reports: Anemia, Other (See Below) Other Hematologic History: dig toxicity Oncologic (Cancer) History: Reports: Other (See Below) Other Oncologic History: malignant neoplasm of skin of trunk, skin cancer Dermatologic History: Reports: Other (See Below) Other Dermatologic History: actinic keratosis - Past Surgical History HEENT Surgical History: Reports: Cataract Surgery GI Surgical History: Reports: Colostomy, Hernia, Inguinal Male Surgical History: Reports: None Musculoskeletal Surgical History: Reports: Shoulder Surgery, Other (See Below) Other Musculoskeletal Surgeries/Procedures:: Right 1st toe removed Social & Family History - Family History Family Medical History: Noncontributory - Tobacco Use Smoking Status *Q: Never Smoker - Caffeine Use Caffeine Use: Reports: Coffee - Recreational Drug Use Recreational Drug Use: No - Living Situation & Occupation Living situation: Reports: , with Spouse Occupation: Retired ED ROS GENERAL - Review of Systems Review Of Systems: See Below Constitutional: Reports: No Symptoms HEENT: Reports: No Symptoms Respiratory: Reports: No Symptoms Endocrine: Reports: No Symptoms : Reports: Pain, Urgency, Urinary Retention Musculoskeletal: Reports: No Symptoms Skin: Reports: No Symptoms Neurological: Reports: No Symptoms Psychiatric: Reports: No Symptoms Hematologic/Lymphatic: Reports: No Symptoms Immunologic: Reports: No Symptoms ED EXAM, GI/ABD - Physical Exam Exam: See Below Exam Limited By: No Limitations General Appearance: Alert, WD/WN, No Apparent Distress Head: Atraumatic, Normocephalic Neck: Normal Inspection, Supple, Non-Tender, Full Range of Motion Respiratory/Chest: No Respiratory Distress, Lungs Clear, Normal Breath Sounds Cardiovascular: Normal Peripheral Pulses, Regular Rate, Rhythm GI/Abdominal Exam: Normal Bowel Sounds, Soft, Other ( colostomy in place) (Male) Exam: Other (padron cath in place-discharge and dried matter on the tubing. small clumps of particles noted in the urine tubing) Course - Vital Signs Last Recorded V/S: Last Vital Signs Temp 36.9 C 03/14/18 12:14 Pulse 73 03/14/18 12:14 Resp 16 03/14/18 12:14 BP 119/54 L 03/14/18 12:14 Pulse Ox 99 03/14/18 12:14 - Orders/Labs/Meds Orders: Active Orders 24 hr Category Date Time Status Insert Urinary Catheter [OM.PC] Stat Care 03/14/18 12:28 Ordered Urinary Catheter Assessment [RC] ASDIRECTED Care 03/14/18 12:29 Active CULTURE URINE [RM] Stat Lab 03/14/18 13:00 Received Labs: Laboratory Tests 03/14/18 Range/Units 13:00 Urine Color Red H (YELLOW) Urine Appearance Turbid H (CLEAR) Urine pH 6.0 (5.0-8.0) Ur Specific [place] 1.010 Urine Protein >=300 H (NEGATIVE) mg/dL Urine Glucose (UA) Negative (NEGATIVE) mg/dL Urine Ketones Negative (NEGATIVE) mg/dL Urine Occult Blood Large H (NEGATIVE) Urine Nitrite Positive H (NEGATIVE) Urine Bilirubin Moderate H (NEGATIVE) Urine Urobilinogen 1.0 (0.2) EU/dL Ur Leukocyte Esterase Large H (NEGATIVE) Urine RBC Packed (NOT SEEN) /HPF Urine Red Cell Clumps Present Urine WBC 20-30 H (NOT SEEN) /HPF Urine WBC Clumps Few Ur Squamous Epith Cells Not seen (NEGATIVE) /HPF Amorphous Sediment Few Urine Bacteria Few H (NEGATIVE) /HPF Urine Mucus Few H (NEGATIVE) /LPF Meds: Medications Discontinued Medications Generic Name Dose Route Start Last Admin Trade Name Jesse PRN Reason Stop Dose Admin Ceftriaxone Sodium 1 gm 03/14/18 12:28 03/14/18 13:17 Rocephin IVPUSH 03/14/18 12:29 Not Given ONETIME ONE Ciprofloxacin 2 packet 03/14/18 13:14 Take Home: Ciprofloxacin 500 Mg, 2 Tab Pack PO 03/14/18 13:15 ONETIME ONE Departure - Departure Time of Disposition: 13:20 Disposition: Home, Self-Care 01 Condition: Good Clinical Impression: Complicated UTI (urinary tract infection), UTI, Urinary tract infectious disease Padron catheter problem Qualifiers: Encounter type: initial encounter Qualified Code(s): T83.9XXA - Unspecified complication of genitourinary prosthetic device, implant and graft, initial encounter - Discharge Information *PRESCRIPTION DRUG MONITORING PROGRAM REVIEWED*: Not Applicable *COPY OF PRESCRIPTION DRUG MONITORING REPORT IN PATIENT SUSHILA: Not Applicable Prescriptions: Ciprofloxacin HCl [Cipro] 500 mg PO BID #6 tablet Instructions: Indwelling Urinary Catheter Care, Adult, Urinary Tract Infection , Adult, [id number] Forms: ED Department Discharge Additional Instructions: 1. rest 2. increase water intake 3. Your urine was sent to be cultured staff will call him if cultures come back and are resistant to the medication he is on 4. Follow up with your PCP in 2 weeks 5. Urine sample today did demanstrate you having a UTI 6. Complete padron cares daily and keep the area clean and dry 7. Call with any questions or concerns 8. Take probiotic while on antibiotics - My Orders Last 24 Hours: My Active Orders 03/14/18 12:28 Insert Urinary Catheter [OM.PC] Stat 03/14/18 12:29 Urinary Catheter Assessment [RC] ASDIRECTED 03/14/18 13:00 CULTURE URINE [RM] Stat - Assessment/Plan Last 24 Hours: My Active Orders 03/14/18 12:28 Insert Urinary Catheter [OM.PC] Stat 03/14/18 12:29 Urinary Catheter Assessment [RC] ASDIRECTED 03/14/18 13:00 CULTURE URINE [RM] Stat Assessment:: 1. urine burning and cramping Plan: 1. UA completed in the ER. results discussed with the pt. 2. Urine culture sent 3. Padron catheter exchanged due to the amount of debris on tubing and appearance 4. Ciproflaxcin ordered and take home medications given 5. Pt advised that staff will call him if cultures come back and are resistant to the medication he is on 6. He is advised to follow up with his PCP in 2 weeks
[2018-03-14] MEDS ORDERED: Take Home: Ciprofloxacin 500 MG Tab, 2 Tab Pack PO ONE (13:14)
== END 2018-03-14 13:30 | disposition home or self-care (01) ==
LOC: VM.ED 12:01
DX: T83.098A Other mechanical complication of other urinary catheter, initial encounter (principal); N39.0 Urinary tract infection, site not specified; E11.40 Type 2 diabetes mellitus with diabetic neuropathy, unspecified; I10 Essential (primary) hypertension; Z88.1 Allergy status to other antibiotic agents; Z88.5 Allergy status to narcotic agent; Z79.899 Other long term (current) drug therapy
CPT/HCPCS: 51702; 81001; 87086; 99283; A9270; 87088; 87186